=== PATIENT | female | born 1995 | race Caucasian/White ===

== ENCOUNTER 2020-05-08 09:36 | Outpatient (CLI) | payer OTHER, SELFPAY ==
--- NOTE | ~2020-05-08 | US_ITS ---
EXAMINATION: US abdomen complete EXAM DATE: 05/08/2020 10:45 INDICATION: nausea, abdominal mass, pelvic pain. TECHNIQUE: Multiple grayscale and Doppler images of the complete abdomen were obtained (by a technolo gist who performed the scan) and subsequently reviewed. There is no prior study for comparison. FINDINGS: Scanning in the reported infraumbilical area of concern demonstrates abdominal wall defect with echogenic material inside, probably small amount of herniated omental fat. The abdominal aorta is normal in caliber. Visualized portion IVC is patent. The pancreatic head a nd body are normal in appearance. The pancreatic tail is not visualized. The liver has normal echogenicity and contour. There are no focal liver lesions identified. There is no evidence of intrahepatic biliary duct dilation. Portal venous flow was seen in the hepatopedal , normal direction and has normal Doppler waveform. Common bile duct measures 2 mm, which is normal. The gallbladder wall is normal in thickness, with ex pected amount of distention. No sonographic evidence of pericholecystic fluid. There is no cholelit hiases. Technologist performing exam reports patient did not demonstrate sonographic Pierce's sign. Please note that this sign is less reliable in patients who have received pain medication. Right kidney: There is normal contour and echogenicity. It measures 9.3 x 4.6 x 3.9 centimeters. T here are no focal renal lesions identified. There is no hydronephrosis. Left kidney: Obscured by bowel gas Spleen: Also obscured by bowel gas. IMPRESSION: 1. Small infraumbilical hernia probably containing omental fat. 2. Left kidney and spleen not visualized. Reviewed, dictated and finalized at location B. 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
--- NOTE | ~2020-05-08 | US_ITS ---
EXAMINATION: US pelvic complete w TV EXAM DATE: 05/08/2020 10:48 INDICATION: Nausea, pelvic pain. History of cyst. Abdominal mass. TECHNIQUE: Pelvic transabdominal and transvaginal sonogram was performed. There are multiple graysca le and Doppler images available for interpretation. There is no prior study for comparison. FINDINGS: Uterus measures 7.7 x 4.2 x 2.6 cm, and is morphologically normal. Endometrial stripe letha sures 3 mm, within normal limits. There is no free pelvic fluid. Right adnexa: The ovary measures 3.1 x 2.2 x 2.0 cm and is morphologically normal. Ovarian vascular f low confirmed. Left adnexa: The ovary measures 2.7 x 2.6 x 2.7 cm and is morphologically normal. Ovarian vascular fl ow confirmed. IMPRESSION: 1. Unremarkable pelvic ultrasound exam. Reviewed, dictated and finalized at location B. AL THERAPIST
== END 2020-05-08 09:37 | disposition home or self-care (01) ==
PROVIDERS: Visit Provider Advanced Practice Midwife
DX: R10.2 Pelvic and perineal pain (principal); K42.9 Umbilical hernia without obstruction or gangrene
CPT/HCPCS: 76700; 76830; 76856

== ENCOUNTER 2022-08-04 02:57 | Inpatient (IN) | payer OTHER, SELFPAY ==
[2022-08-04] VITALS (123 sets, daily range): BP systolic 73–155; BP diastolic 34–90; PULSE 57–194; RESP 16–18; TEMP 36–36.9; O2SAT 95–100; BMI 27.6
--- NOTE | 2022-08-04 02:57 | LDADM ---
This patient, Anita Schulz, was admitted to Labor/Delivery/Recovery 104 on 08/04/22 at 02:57. Plans for labor, pain management and were discussed with patient. Patient/family oriented to hospital policies and general routines including ID bracelet, bed and alarms, visiting hours, pain management, procedures, bathroom and other care routines, personal items, smoking policy, room service/diet and guest tray routines, security routines, and visiting hours. Patient/Family are encouraged to report perceived risks to care and to ask questions if they do not understand what they are told or what they should do. See OBIX for further documentation.
[2022-08-04] MEDS: LACTATED RINGERS 1,000 ML 125 ML IV CONT ×2 (03:30→04:48)
[2022-08-04 03:33] LABS: Basophils Absolute Auto 0.1 K/mm3 (0.0-0.1); Basophils Percent Auto 0.5 % (0.2-1.2); Eosinophils Absolute Auto 0.1 K/mm3 (0-0.3); Eosinophils Percent Auto 0.5 % (0-4.4); Hematocrit 34.3 % (37.0-47.0); Hemoglobin 11.8 g/dL (12.0-15.0); Immature Granulocyte Percent A 0.7 % (0-0.5); Lymphocytes Absolute Auto 2.58 K/mm3 (0.9-3.2); Lymphocytes Percent Auto 16.9 % (18.3-44.2); Mean Corpuscular HGB Conc 34.4 g/dl (32-36); Mean Corpuscular Volume 87.3 fl (80-100); Mean Platelet Volume 11.3 fl (7.4-10.4); Monocytes Absolute Auto 0.9 K/mm3 (0.1-0.6); Monocytes Percent Auto 5.8 % (2.6-8.5); Neutrophils Absolute Auto 11.6 K/mm3 (1.3-6.7); Neutrophils Percent Auto 75.6 % (45.5-73.1); Platelet Count Result 212 k/mm3 (150-375); Red Blood Count 3.93 M/mm3 (4.2-5.4); Red Cell Distribution Width 13.2 % (11.5-14.5); White Blood Count 15.3 K/mm3 (4.5-10.0)
--- NOTE | 2022-08-04 04:22 | WPDANESEPPF ---
Anes - Initial Pre Proc Eval Procedure: Labor Epidural Date/Time: 08/04/22 04:00 Surgeon: Shayan Castrejon MD Pre Op Diagnosis: Labor Pain Pre Op Diagnosis: labor Patient Data Age: 27 Gender: F Height: 1.63 m Weight: 73 kg Last Vital Signs Pulse 68 08/04/22 04:21 BP 115/61 08/04/22 04:21 Pulse Ox 95 08/04/22 04:22 Allergies Allergy/AdvReac Type Severity Reaction Status Date / Time hydrocodone Allergy Nausea and Verified 08/04/22 03:15 Vomiting oxycodone Allergy Nausea and Verified 08/04/22 03:15 Vomiting Home Medications Medication Instructions Recorded Confirmed Type prenat.vits,blanca,dvk-jyyg-ppsoo 1 tablet PO HS 07/26/22 08/04/22 History sertraline 50 mg tablet 50 mg PO DAILY 07/26/22 08/04/22 History Laboratory Tests 08/04/22 03:28 WBC 15.3 H K/mm3 (4.5-10.0) RBC 3.93 L M/mm3 (4.2-5.4) Hgb 11.8 L g/dL (12.0-15.0) Hct 34.3 L % (37.0-47.0) MCV 87.3 fl (80-100) MCH 30.0 pg (26-34) MCHC 34.4 g/dl (32-36) RDW 13.2 % (11.5-14.5) Plt Count 212 k/mm3 (150-375) MPV 11.3 H fl (7.4-10.4) Immature Gran % (Auto) 0.7 H % (0-0.5) Neut % (Auto) 75.6 H % (45.5-73.1) Lymph % (Auto) 16.9 L % (18.3-44.2) [place] % (Auto) 5.8 % (2.6-8.5) Eos % (Auto) 0.5 % (0-4.4) Baso % (Auto) 0.5 % (0.2-1.2) Lymph # (Auto) 2.58 K/mm3 (0.9-3.2) [place] # (Auto) 0.9 H K/mm3 (0.1-0.6) Eos # (Auto) 0.1 K/mm3 (0-0.3) Baso # (Auto) 0.1 K/mm3 (0.0-0.1) Abs Immat Gran (auto) 0.10 H K/mm3 (0.00-0.031) Absolute Neuts (auto) 11.6 H K/mm3 (1.3-6.7) Absolute Nucleated RBC 0.0 K/mm3 (0.0-0.012) Nucleated RBC % 0.0 % (0.0-0.2) RPR Pending Patient hx anesthesia problems: none Family hx anesthesia problems: none Results Review: All pre-operative results and documents have been reviewed as part of the pre-operative evaluation. [facility] Family History Family History (Updated 07/26/22 @ 12:34 by Vesna Bundy RN) Other Patient denies significant medical history Social History Social History Smoking status: Never smoker Alcohol intake: current Substance use: never Spiritual care concerns: No Anes - Eval Final PreProcedure Day of Procedure 08/04/22 04:22 Patient weight: normal Heart: regular rate and rhythm Airway: Mallampati scale class II Neurological: alert and oriented ASA classification: II Emergent: no Anesthetic plan: proceed Anesthesia type and monitoring: regional epidural and standard monitoring Results Review: All pre-operative results and documents have been reviewed as part of the pre-operative evaluation. Informed Consent: The patient's anesthetic plan and its attendant risks and benefits were discussed with the patient/family/POA. Questions were solicited and answers provided to the satisfaction of the patient/family/POA.
--- NOTE | 2022-08-04 04:26 | WPDANESEPN ---
Anes - Epidural Procedure Note Date/Time: 08/04/22 04:26 Consent: I have discussed with the patient/family/POA, the placement of an epidural catheter and the use of epidural narcotic/local anesthetic for labor analgesia and/or postoperative pain management, including associated potential risks, benefits, complications and side effects. I have discussed alternative methods of labor analgesia and/or postoperative pain management. The patient/family/POA, understand(s) and wish(es) to proceed with epidural narcotic/local anesthetic for labor analgesia and/or postoperative pain management. Time-Out: A pre-procedural Time-Out was completed immediately before starting the procedure and confirmed: Patient Identification, Site, Procedure, Patient Position and the Availability of Requisite Equipment. Clinical Indications: Labor Pain Epidural Insertion Note Patient position: sitting Skin prep: chlorhexidine and sterile drape Needle: 18g Tuohy-Schliff Catheter: 20g Unstyleted Technique: Loss of resistance. Level of insertion: L3/4 Catheter skin yayo (cm): 5 Length in epidural space (cm): 10 Skin anesthesia: lidocaine 1% Test dose: 1.5% Lidocaine with 1:[id number] Epi, negative for subarachnoid Inj and negative for intravascular Inj Time of test dose: 04:11 Observations: tolerated well Complications: none
[2022-08-04] MEDS: ONDANSETRON INJ 4 MG/2 ML VIAL IV PUSH (08:10)
[2022-08-04] MEDS: OXYTOCIN 30 UNITS/NS 500 ML 30 UNITS/500 ML BAG 999 UNITS IV CONT (10:26)
--- NOTE | 2022-08-04 10:39 | PM.OBPRVD ---
OB - Delivery Note Procedure Delivery date: 08/04/22 Procedure: Delivery augmentation: Rupture of Membranes Delivery monitor: External FHT and External Uterine Route of delivery: Episiotomy description: None Laceration Description: Other (small left periurethral, 2 stitches vaginally removed piece of hymenal tag) Delivery repair: vicryl Specimen: No Quantitative Blood Loss (ml): 310 Anesthesia type: Epidural Disposition: Floor Baby Date of : 08/04/22 Time of : 10:20 Weeks of gestation at delivery: 39 gender: Male presentation: vertex position: Left Occiput Anterior Placenta delivery description: Spontaneous Cord Vessel Description: 3 Vessels, Clamped/Cut and Delayed Cord Clamping score one minute: 8 score five minutes: 9 Narrative: mother and baby skin to skin in stable condition
[2022-08-04] MEDS: OXYTOCIN 30 UNITS/NS 500 ML 30 UNITS/500 ML BAG 125 UNITS IV CONT (11:00)
[2022-08-04] MEDS: ACETAMINOPHEN 325 MG TABLET 650 MG PO (11:26)
[2022-08-04] MEDS: WITCH HAZEL 40 PADS 1 PAD TOPICAL (12:40)
[2022-08-04] MEDS: BENZOCAINE 20% AER SPR (*SP) 56 GM CAN 1 SPRAY TOPICAL (12:40)
--- NOTE | 2022-08-04 12:49 | OBPPTRN ---
Patient transferred to post room # 291 via wheelchair. Support person present. Oriented to unit, room, information board, rooming in, admission packet and security measures. Patient verbalizes understanding.
[2022-08-04] MEDS: IBUPROFEN 600 MG TABLET PO (17:02)
[2022-08-04] MEDS: SERTRALINE HCL 50 MG TABLET PO (21:04)
[2022-08-05 05:35] LABS: Hematocrit 29.3 % (37.0-47.0); Hemoglobin 9.5 g/dL (12.0-15.0)
[2022-08-05 07:29] LABS: Rapid Plasma Reagin Non-Reactive (NonReactive)
--- NOTE | 2022-08-05 07:49 | PM.OBPNVD ---
OB - PN: Subj Subjective Date/time seen: 08/05/22 07:49 Patient comments: no complaints baby status: doing well OB - PN: Obj Data Labs 08/05/22 05:12 Labs: Laboratory Results - last 24 hr 08/04/22 08/05/22 03:28 05:12 Hgb 9.5 L Hct 29.3 L RPR Non-reactive OB - PN A/P Plan day: 1 Plan: routine care Time Spent With Patient Time: Total time spent is greater than 50% in coordination of care (as documented) at patient's floor/unit and/or counseling patient: Time with patient: less than 15 minutes Review of Systems Review of Systems: All systems reviewed & are unremarkable except as noted in HPI and below Exam Narrative: Fundus firm and vaginal flow controlled. No lower ext redness, warmth, or edema. Negative homans. Const: General: comfortable Chest: Breast/axilla inspection: normal inspection of the breasts Resp: Effort & Inspection: normal respiratory effort Cardio: Rate: regular rate GI: GI Palp: Yes Soft to palpation Psych: Appearance: grossly normal Affect: normal affect Attitude: cooperative Thought content: Yes Normal thought content present Judgement: Good judgement present (Psych)
[2022-08-05 07:50] VITALS: BP 120/65; PULSE 87; RESP 16; TEMP 36.6; O2SAT 98
[2022-08-05 08:00] VITALS: PULSE 87; RESP 16; O2SAT 98
[2022-08-05] MEDS: POLYSACCHARIDE IRON COMPLEX 150 MG CAPSULE PO ×2 (10:27→18:01)
[2022-08-05] MEDS: MULTIVIT/MIN/PREN/FOL AC/IRON TABLET 1 TAB PO (10:28)
[2022-08-05] MEDS: IBUPROFEN 600 MG TABLET PO ×2 (10:28→18:01)
--- NOTE | 2022-08-05 10:32 | PC.NURSE ---
[id number] Introductions were made, then consulted with patient to assess needs related to . Mother led the conversation with her?plans to feed?her infant and the?experience so far. Blood sugar was checked and resulted at 76mg/dl. Resources provided for inpatient and outpatient services with the feeding sheet, mom/baby guide and name written on the white board. Mother voiced understanding of information and is receptive to assistance with latching . Mother states she has used a nipple shield twice with only one latch. Mother works well with her infant. Reviewed intake, output, blood sugar, and frequency of /stimulating milk making hormones with baby or the pump as she chooses. Discussed risks and benefits of bottle feeding and . was given time to explore mothers chest practicing instincts of crawling to the breast. Mother practiced hand expression finger fed colostrum to her infant. was assisted to attempt to latch to the breast using laid-back, cross-cradle, and football. is sleepy and reluctant at this time. Discusses paced bottle feeding if mother chooses to pump and feed for this next feeding as she has asked about that option. Mother was encouraged to give her infant some time ctsg-sa-zhow and continue to work with her infant and to call if infant doesn't wake to feed, there's pain with latch, for latch assistance, questions or concerns. Reviewed to breastfeed on demand and encouraged parents to advocate for feeding above assessment/testing if it can wait. Mother demonstrates understanding of education and father of baby acknowledges information with support. Reported to the primary RN.
[2022-08-05] MEDS: DOCUSATE SODIUM 100 MG CAPSULE PO (18:01)
[2022-08-05 20:05] VITALS: BP 121/72; PULSE 99; RESP 18; TEMP 36.8; O2SAT 99
[2022-08-05] MEDS: SERTRALINE HCL 50 MG TABLET PO (20:10)
[2022-08-06 08:32] VITALS: BP 115/74; PULSE 69; RESP 16; O2SAT 99
[2022-08-06] MEDS: POLYSACCHARIDE IRON COMPLEX 150 MG CAPSULE PO (08:32)
[2022-08-06] MEDS: MULTIVIT/MIN/PREN/FOL AC/IRON TABLET 1 TAB PO (08:32)
[2022-08-06] MEDS: DOCUSATE SODIUM 100 MG CAPSULE PO (08:32)
--- NOTE | 2022-08-06 09:59 | PM.OBPNVD ---
OB - PN: Subj Subjective Date/time seen: 08/06/22 09:59 Patient comments: no complaints, pain well controlled and tolerating diet OB - PN: Obj Data Labs 08/05/22 05:12 OB - PN A/P Plan day: 2 Plan: routine care and discharge home Time Spent With Patient Time: Total time spent is greater than 50% in coordination of care (as documented) at patient's floor/unit and/or counseling patient: Exam Const: General: comfortable and no acute distress Resp: Effort & Inspection: normal respiratory effort Auscultation: no rales, no rhonchi and no wheezes Cardio: Rate: regular rate Heart sounds: no click, no murmurs and no rubs GI: GI Palp: Yes Soft to palpation and No Tenderness to palpation present (GI) Auscultation: normal bowel sounds Extrem: General: normal to inspection, no pedal edema and no calf tenderness
--- NOTE | 2022-08-06 09:59 | PM.OBDSVD ---
DS: Admitting Diagnosis Discharge Date 08/06/22 Admitting Diagnosis term OB - DS: Summary OB Procedures : None OB Procedures Intrapartum: Spontaneous Vag Delivery OB Procedures: : None Time Spent with Patient Time attestation: Total time spent providing and/or coordinating discharge services: DS: Data Data Completed and Pending Pending studies at discharge: Pending at discharge 08/05/22 07:37 Surgical [PTH] Routine Discharge Plan Discharge Discharging Clinician: Shayan Castrejon Patient Disposition: Home, Self-Care Activity: pelvic rest Diet: regular Patient Instructions: Antibiotic Form Stand Alone Forms: General Discharge Information Follow-up/Referrals: Shayan Castrejon MD [Physician] - Discharge Medications: Continued sertraline 50 mg Tablet 50 mg PO DAILY #2 Tablet 1 tablet PO HS Date of admission: 08/04/22 02:57 Primary Care Provider: PHYSICIAN,TEXTILE CLOTHING AND FOOTWEAR MECHANIC Admitting Provider: Shayan Castrejon Attending physician on admission: Shayan Castrejon Condition: Stable
--- NOTE | 2022-08-06 17:54 | PC.NURSE ---
[id number] Patient viewed the discharge video Mother & Baby Care, The First Two Weeks . Patient was given the opportunity and encouraged to ask questions. Patient verbalized understanding of information shared and has been given the mother/baby guide for home reference.
[2022-08-07 09:57] VITALS: BP 125/54; PULSE 89; RESP 16; TEMP 36.9; O2SAT 97
--- NOTE | 2022-08-26 13:25 | PM.OBTRLD ---
OB - Triage/Final Diagnosis Visit Information Comments/Additional reasons for admission: I have assessed the risk for this patient, Anita Schulz, and determined that she would benefit from observation care. Evaluation Laboratory results: Laboratory Tests 08/04/22 08/05/22 03:28 05:12 WBC 15.3 H RBC 3.93 L Hgb 11.8 L 9.5 L Hct 34.3 L 29.3 L MCV 87.3 MCH 30.0 MCHC 34.4 RDW 13.2 Plt Count 212 MPV 11.3 H Immature Gran % (Auto) 0.7 H Neut % (Auto) 75.6 H Lymph % (Auto) 16.9 L [place] % (Auto) 5.8 Eos % (Auto) 0.5 Baso % (Auto) 0.5 Lymph # (Auto) 2.58 [place] # (Auto) 0.9 H Eos # (Auto) 0.1 Baso # (Auto) 0.1 Abs Immat Gran (auto) 0.10 H Absolute Neuts (auto) 11.6 H Absolute Nucleated RBC 0.0 Nucleated RBC % 0.0 RPR Non-reactive Blood Type O Positive Antibody Screen Negative Final Diagnosis (1) Term delivered: Code(s): O80 - Encounter for full-term uncomplicated delivery Status: Acute
--- OUTSIDE RECORDS SUMMARY | 2023-01-07 11:33 | XMS_ITS ---
Author Name Unknown Address [address] [place] [address] Phone Organization [facility] Address [address] [place] [address] Phone Care Team Providers Care Attraction Worker Name Role Phone BRANDEN DONG, BRENTON Hendricks Primary Care Provider [phone] Problems Includes: Active, inactive, and resolved Problems All Visits Onset Date Resolved Date Provider Condition S tatus 06/15/2022 CORBY GUTHRIE [facility]- A ctive Plan of Treatment Findings Encounter Date Ordered follow-up visit as n eeded with an office visit if symptoms persist or worsen COVID SICK VISIT- ESTABLISHED PATIENT with CORBY GAMBOA-GABRIEL 06/15/2022
--- OUTSIDE RECORDS SUMMARY | 2023-01-07 11:33 | XMS_ITS | Clinical Summary ---
Author Name Unknown Address [address] [place] [address] Phone Organization [facility] Address [address] [place] [address] Phone Care Team Providers Care Staking Technician Name Role Phone BRANDEN DONG, BRENTON Hendricks Primary Care Provider [phone] Reason for Visit and Chief Complaint The Chief Complaint is: pt is here with a cough, sequeira,sore throat,stuffy and runny nose. pt is 22 weeks Problems Includes: Problems addressed during this encounter and other active Problems All Visits Onset Date Resolved Date Provider Condition S tatus 06/15/2022 CORBY GUTHRIE [employer]- A ctive Plan of Treatment - Return to the clinic if condition worsens or new symptoms arise - Last Documented On 04/11/2022 2:14PM ; [facility] - Patient will call for appointment as needed - Last Documented On 04/11/2022 2:14PM ; [facility] Instructions to patient Instructions for patient Last Documented On 2:11PM ; [facility] Assessments Includes: Assessments from this encounter Findings - Acute upper respiratory infection - Last Documented On 04/11/2022 2:14PM ; [facility] Instructions Includes: Instructions from this encounter Ins
--- OUTSIDE RECORDS SUMMARY | 2023-01-07 11:33 | XMS_ITS | Clinical Summary ---
Author Name Unknown Address [address] [place] [address] Phone Organization [facility] Address [address] [place] [address] Phone Care Team Providers Care Insurance Verify Rep Name Role Phone BRANDEN DONG, BRENTON Hendricks Primary Care Provider [phone] Reason for Visit and Chief Complaint The Chief Complaint is: Pt here with cough sore throat and nausea and some vomiting but not sure ifthat is from being 17 weeks preg.this all started Friday Problems Includes: Problems addressed during this encounter and other active Problems All Visits Onset Date Resolved Date Provider Condition S tatus 06/15/2022 CORBY GUTHRIE [employer] [facility] [employer]RU [employer] 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 Antibiotics not indicated today. May take OTC medications to help with symptoms - decongestants, antihistamines, flonase, expectorants. Return with any new or worsening symptoms. - Last Documented On 03/06/2022 11:18PM ; [facility] Assessments Includes: Assessments from this encounter Findings - [J00 - Acute nasopharyngitis [common cold]] Acute nasopharyngitis - Last Documented On 03/06/2022 11:18PM ; [facility] Medical Equipment - Implanted Devices Includes: Current Devices No Medical Equipment Recorded Medications Includes: Medications discussed during this encounter and other current Medications Current Medications (continue as prescr
--- OUTSIDE RECORDS SUMMARY | 2023-01-07 11:33 | XMS_ITS | Clinical Summary ---
Author Name Unknown Address [address] [place] [address] Phone Organization [facility] Address [address] [place] [address] Phone Care Team Providers Care Alumni Relations Coordinator Name Role Phone BRANDEN DONG, BRENTON Hendricks Primary Care Provider [phone] Reason for Visit and Chief Complaint The Chief Complaint is: PT C/O SORE THROAT AND CONGESTION. PT Problems Includes: Problems addressed during this encounter and other active Problems Current Visit Onset Date Resolved Date Provider Douglas wayne Status 06/15/2022 CORBY GUTHRIE [facility]- A ctive Plan of Treatment - Return to the clinic if condition worsens or new symptoms arise - Last Documented On 06/15/2022 1:55PM ; [facility] - Follow-up visit as needed with an office visit if symptoms persist or worsen - Last Documented On 06/15/2022 1:55PM ; [facility] - Patient to call if problem develops - Last Documented On 06/15/2022 1:55PM ; [facility] Instructions to patient Go to the emergency room if condition worsens Last Documented On 1:51PM ; [facility] Watch for signs/symptoms of infection Last Documented On 1:51PM ; [facility] Watch for signs/symptoms of infection, return to the clinic if seen
--- OUTSIDE RECORDS SUMMARY | 2023-01-07 11:33 | XMS_ITS | Clinical Summary ---
Author Name Unknown Address [address] [place] [address] Phone Organization [facility] Address [address] [place] [address] Phone Care Team Providers Care Stud Driver Name Role Phone BRANDEN DONG, BRENTON Hendricks Primary Care Provider [phone] Reason for Visit and Chief Complaint The Chief Complaint is: Patient denies COVID exposure, and is fully vaccinated. Patient complains of fatiuge, cough, chills, headache, loss of taste and smell, sore throat and runny nose since Friday Problems Includes: Problems addressed during this encounter and other active Problems All Visits Onset Date Resolved Date Provider Condition S tatus 06/15/2022 CORBY GUTHRIE [facility]- A ctive Plan of Treatment Patient tested positive via rapid COVID testing. Patient was instructed to quarantine for 10 days from onset of symptoms. Health Department was notified of positive results. Discussed OTC medications for symptoms. Stay well hydrated and get plenty of rest. Discussed s/s of respiratory distress and when to go to ER. Follow up if symptoms worsen or do not improve. - Last Documented On 03/23/2021 4:55PM ; [facility] Assessments Includes: Assessments from this encounter Findings - COVID-19 infection [U07.1 - COVID-19] - Last Documented On 03/23/2021 4:55PM ; [facility] Medical Equipment - Implanted Devices Includes: Current Devices No Medical Equipment Recorded Medications
--- OUTSIDE RECORDS SUMMARY | 2023-01-07 11:34 | XMS_ITS | Clinical Summary ---
Author Name Unknown Address [address] [place] [address] Phone Organization [facility] Address [address] [place] [address] Phone Care Team Providers Care City Alderman Name Role Phone BRANDEN DONG, BRENTON Hendricks Primary Care Provider [phone] Reason for Visit and Chief Complaint The Chief Complaint is: No COVID exposure, sx of chest pain/tightness, cough. fatigue/tired, muscle/body aches, stuffy nose, nausea, LYLE, STand loss of taste/smell yesterday morning (Had COVID vaccines September & October) Problems Includes: Problems addressed during this encounter and other active Problems All Visits Onset Date Resolved Date Provider Condition S tatus 06/15/2022 CORBY GUTHRIE [facility]- A ctive Plan of Treatment - Return to the clinic if condition worsens or new symptoms arise - Last Documented On 12/22/2020 6:27PM ; [facility] - Patient will call for appointment as needed - Last Documented On 12/22/2020 6:27PM ; [facility] Instructions to patient Instructions for patient Last Documented On 6:06PM ; [facility] Assessments Includes: Assessments from this encounter Findings - Acute upper respiratory infection - Last Documented On 12/22/2020 6:27PM ; [facility] Instructions Include
== END 2022-08-06 15:37 | disposition home or self-care (01) | DRG 560 ==
LOC: ANHLDR 03:11 → ANHOB2 12:52
PROVIDERS: Advanced Practice Midwife; Admitting Provider Obstetrics & Gynecology; Visit Provider Obstetrics & Gynecology
DX: O99.892 Other specified diseases and conditions complicating childbirth (principal); N89.8 Other specified noninflammatory disorders of vagina; Z37.0 Single live birth; Z3A.39 39 weeks gestation of pregnancy; O71.82 Other specified trauma to perineum and vulva
CPT/HCPCS: 36415; 85014; 85018; 85025; 86592; 86850; 86900; 86901; 88307; A9270; J2405; J2590; J2795; J7120

== ENCOUNTER 2023-12-31 13:05 | Observation (INO) | payer OTHER, SELFPAY ==
--- NOTE | 2023-12-31 13:05 | OBADM ---
This patient, Anita Schulz, admitted to the OB room OB Post 115 for observation. Patient/family oriented to hospital policies and general routines including ID bracelet, bed and alarms, visiting hours, pain management, procedures, bathroom and other care routines, personal items, smoking policy, room service/diet, and visiting hours. Patient/Family are encouraged to report perceived risks to care and to ask questions if they do not understand what they are told or what they should do.
[2023-12-31 13:45] VITALS: BP 106/67; PULSE 89
[2023-12-31 14:00] VITALS: BP 121/74; PULSE 90
--- NOTE | 2024-01-01 14:07 | PM.OBTRLD ---
OB - Triage/Final Diagnosis Visit Information Date of evaluation: 12/31/23 Reason for evaluation: other (fall) Comments/Additional reasons for admission: I have assessed the risk for this patient, Anita José Miguel Chandlerey, and determined that she would benefit from observation care.
== END 2023-12-31 15:21 | disposition home or self-care (01) ==
PROVIDERS: Admitting Provider Obstetrics & Gynecology; Visit Provider Obstetrics & Gynecology
DX: Z04.3 Encounter for examination and observation following other accident (principal); O26.893 Other specified pregnancy related conditions, third trimester; W19.XXXA Unspecified fall, initial encounter; Z3A.37 37 weeks gestation of pregnancy
CPT/HCPCS: G0378; G0379

== ENCOUNTER 2024-01-15 23:16 | Inpatient (IN) | payer OTHER, SELFPAY ==
[2024-01-16] VITALS (193 sets, daily range): BP systolic 81–216; BP diastolic 48–189; PULSE 33–135; RESP 18; TEMP 36.3–36.8; O2SAT 89–100; BMI 27.5
--- OUTSIDE RECORDS SUMMARY | 2024-01-16 00:23 | XMS_ITS | Clinical Summary ---
Author Name Unknown Address [address] [place] [address] Phone Organization [facility] Address [address] [place] [address] Phone Care Team Providers Care Ledger Poster Name Role Phone BRENTON OTERO MD Primary Care Provider [phone] Reason for Visit and Chief Complaint The Chief Complaint is: Left ingrown toe nail removal Problems Includes: Problems addressed during this encounter and other active Problems All Visits Onset Date Resolved Date Provider Condition S tatus 06/15/2022 CORBY GUTHRIE [employer]-BC A ctive Plan of Treatment No Plan of Treatment Recorded Assessments Includes: Assessments from this encounter Findings - Ingrowing toenail of left foot [L60.0 - Ingrowing nail] - Last Documented On 01/01/2023 3:00PM ; [facility] - Paronychia of the left first toe [L03.032 - Cellulitis of left toe], resolved - Last Documented On 01/01/2023 3:00PM ; [facility] Medical Equipment - Implanted Devices Includes: Current Devices No Medical Equipment Recorded Medications Includes: Medications discussed during this encounter and other current Medications Discontinued / Stopped on this date JALYN CARRANZA PA-C on 12/05/2022 Cephalexin 500 MG Oral Capsule Provider: JALYN Ferguson Diagnosis: Cellulitis of le ft toe Mupirocin 2% External Ointment Provider: JALYN D ZIPPRICH P A-C Diagnosis: Cellulitis of le ft toe Flagyl 500MG Oral Tablet Provider: EVANGELIST COURTNEY PA-C Diagnosis: Acute vaginitis Effexor XR 37.5 MG Capsule Extended Release 24 Hour Provider: KARLIE Bliss Diagnosis: Major depressive disorder, single episode, unspecified PROzac 20 MG Capsule Provider: KARLIE COURTNEY PA-C Diagnosis: Anxiety disorder , unspecified PROzac 10 MG Capsule, conventional Provider: KARLIE Bliss Diagnosis: Anxiety disorder , unspecified Diflucan 150 MG Tablet Provider: SHAWN COURTNYE PA-C Diagnosis: Candidiasis of v ulva and vagina Cyclobenzaprine HCl 10 MG Tablet Provider : ADAN ORDONEZ PA-C Diagnosis: SPASM OF MUSCLE Fluconazole 150 MG Tablet Provider: ME BRAYDEN ORDONEZ PA-C Diagnosis: CANDIDAL VULVOVA GINITIS Hydrocodone-Acetaminophen 5- 325 MG Tablet Provider: GILBERT LOVE DO Diagnosis: LUMP OR MASS IN BREAST Fluconazole 150 MG OR TABS Provider: ADAN ORDONEZ PA-C Diagnosis: CANDIDAL VULVOVA GINITIS Cipro 250 MG OR TABS Provider: ADAN ORDONEZ PA-C Diagnosis: URIN TRACT INFEC TION NOS Bactrim DS 800-160 MG OR TABS Provider: CAN CURRY PA-C Diagnosis: INGROWING NAIL Aldara 5% EX CREA Provider: CAN KENNEY PA-C Diagnosis: VIRAL WARTS NOS Naprosyn 500 MG OR TABS Provider: BEATRICE CARRANZA PA-C Diagnosis: BACKACHE NOS Ventolin HFA 108 (90 Base) M CG/ACT IN AERS Provider: CAN CURRY PA-C Diagnosis: SHORTNESS OF BRENNAN ATH Current Medications (continue as prescribed) Sertraline HCl 100 MG Oral Tablet 12/05/2022 Provide r: Diagnosis: ordered by ob-cnc set up operator Past Medications on file Amoxicillin 875 MG Oral Tablet 08/20/2023 - 08/30/2023 Provider: UZMA SNOWDEN DNP Diagnosis: Streptococcal pharyngitis 1 CAPSULE TWO TIMES A DAY Cephalexin 500 MG Oral Capsule 01/28/2023 - 02/04/2023 Provider: JALYN ALCALA CH, PA-C Diagnosis: Ingrowing nail One tablet three times a day Medications Administered Includes: Administered Medications from this encounter No Administered Medications Recorded Vital Signs Includes: Vital Signs from this encounter Vital Name 01/01/2023 02:15P Blood Pressure Sitting L 112/64 BP Cuff Size Regular Pulse Rate-Sitting (bpm) 88 Respiration Rate (breaths/min) 18 Temp-Oral (F) 97.6 Height (in) 63 Weight (lb) 130 Body Mass Index 23 Body Surface Area 1.6 Oxygen Saturation (%) 98 Last Documented: On 01/01/2023 2:26PM ; [facility] Results Includes: Results discussed during this encounter No Results Recorded For Specified Dates History of Present Illness Includes: History of Present Illness from this encounter JENNIFER SNYDER is a 27 year old female. Source of patient information was patient ? Allergy list reviewed ? Medication list reviewed - No pain in the left great toe joint(s) - No left great toe joint swelling - No stiffness in the left great toe joint - No yellowish discoloration of the left great toenail Social History Description Last Updated Current smoker 08/20/2023 Procedures and Surgical History Includes: Procedures from this encounter Procedures Code Diagnosis Performing Provider Service L ocation Service Date partial permanent excision of medial border of left great toenail and matrix - after explaining procedure and risk, verbal consetn obtained. Toe was cleaned with betadine. 1cc of 2% lidocain injected locally . 4mm of medial nail removed. Nail base was treated with phenol and alcohol to prevent nail growth. Patient tolerated procedure well with no complaintss. Minimal blood loss controlled with pressure. Toe was banaged and post op procedure given including observation, keeping toe clean and appying triple antibiotic BID x 7 days [id number] Medical History Includes: Medical History addressed during this encounter Description Last Updated Contact with and (Suspected) exposure to COVID-19 08/20/2023 Family History Includes: Family History addressed during this encounter Description Last Updated Family history of malignant female breas t neoplasm MGM--early 30s 07/25/2016 Review of Systems Includes: Review of Systems from this encounter No Review of Systems Recorded Mental Status Includes: Mental Status from this encounter No Mental Status Recorded Functional Status Includes: Functional Status from this encounter No Functional Status Recorded Physical Exam Includes: Physical Exam from this encounter Allergies Includes: Active Allergies Substance Type Reaction Onset Date Resolved Date Statu s oxyCODONE HCl Allergy 08/20/2023 Activ e Encounters Encounter Provider Location Date Check-In Time Check-Out Time Diagnosis PROBLEM VISIT JALYN CARRANZA PA-C [facility] 01/02/20 23 2:12PM 2:49PM Paronychia Left First Toe,Ingrowing Toenail Left Foot Insurance Includes: Active Insurance Policies Plan Name Member ID Group # Subscriber Relationship Effect breonna Dates 1 - [facility] [id number] GRACIELA SNYDER Self Clinical Notes Includes: Clinical Notes from this encounter * Progress note Date Encounter Last Documented by 01/01/2023 PROBLEM VISIT Last documented on 01/01/2023; 3:00 PM, JALYN CARRANZA PA-C; [facility] Active Problems & Conditions - No Active Problems - Z33.1 - Chief Complaint The Chief Complaint is: Left ingrown toe nail removal. History of Present Illness GRACIELA SNYDER is a 27 year old female. Source of patient information was patient - Allergy list reviewed - Medication list reviewed - No pain in the left great toe joint(s) - No left great toe joint swelling - No stiffness in the left great toe joint - No yellowish discoloration of the left great toenail Current Medication - Sertraline HCl 100 MG Oral Tablet One tablet daily ordered by ob-cnc set up operator, 0 days, 0 refills Past Medical/Surgical History Reported: Not carrier of hemophilia A. No other medical history reported Signs of Insulin Resistance and no Surgery. LMP: 10/15/2009. Recent Events: No recent severe illness or injury. Medical: No previous hospitalizations. Recurrent group A beta-hemolytic streptococcus infections. No hearing problems, no cardiac problems, and no heart murmur. No orthopedic problems. No loss of function of one of paired organs. Tests: Blood pressure was not high. Exposure: Contact with and (Suspected) exposure to COVID-19. No exposure to tuberculosis. Environmental Exposure: Smoke exposure. Physical Trauma: No fall. No trauma to the head. : Vaginal delivery and 0. Pediatric: Not born with congenital abnormalities. Physical Exam: No delayed milestones Diagnoses: No diagnosis of asthma had negative spirometry in 2007 but still seems like she gets more out of breath than other peers when runs. No diagnosis of diabetes mellitus. No diagnosis of concussion. No diagnosis of hematologic disorder No diagnosis of sickle cell abnormality Social History Social history unchanged. Caffeine use: Caffeine use - All day everyday. Tobacco use: Current smoker and former smoker VAPES. Smoking status: Former smoker. Alcohol: Not using alcohol. Drug Use: Not using drugs. Housing And Economic Circumstances: Lives with unmarried mother. Education: Currently in school. Sexual: Sexually active; current partner x 1mo . Has had 10 lifetime partners. control method not specified. Travel: No travel. Allergies - HYDROcodone-Acetaminophen Family History Cancer No family history of sudden early deaths No family history of bleeding problems Family history unchanged No convulsions Blood pressure was not high No family history of defects No diagnosis of diabetes mellitus No diagnosis of arthritis No diagnosis of stroke syndrome No diagnosis of malignant neoplasm of large intestine Malignant female breast neoplasm MGM--early 30s Physical Findings - Vitals taken 01/01/2023 02:15 pm BP-Sitting L 112/64 mmHg BP Cuff Size Regular Pulse Rate-Sitting 88 bpm Respiration Rate 18 per min Temp-Oral 97.6 F Height 63 in Weight 130 lbs Body Mass Index 23 kg/m2 Body Surface Area 1.6 m2 Oxygen Saturation 98 % Cardiovascular: Capillary Refill Test: - 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 Musculoskeletal System: Toes: General/bilateral: - No onycholysis of the left first toe. - No onychogryphosis of the left first toe. - No discoloration of the left first toenail. Toes Of The Left Foot: - Paronychia of the medial first toe. - Tenderness on palpation of the first toe, medial nail fold. - No swelling, erythema, and warmth of the first toe, medial aspect. - No drainage from the great toenail fold. Psychiatric: Psychiatric: Value PHQ9 score: 0 Nails: - Ingrown nails were noted on the medial border of the left first toe. Assessment - Ingrowing toenail of left foot [L60.0 - Ingrowing nail] - Paronychia of the left first toe [L03.032 - Cellulitis of left toe], resolved Therapy - Partial permanent excision of medial border of left great toenail and matrix - after explaining procedure and risk, verbal consetn obtained. Toe was cleaned with betadine. 1cc of 2% lidocain injected locally . 4mm of medial nail removed. Nail base was treated with phenol and alcohol to prevent nail growth. Patient tolerated procedure well with no complaintss. Minimal blood loss controlled with pressure. Toe was banaged and post op procedure given including observation, keeping toe clean and appying triple antibiotic BID x 7 days. Practice Management Use of tobacco assessment performed Review of medications documented; Standardized depression screening: negative for symptoms and for adult impression and score 0. Health Reminders - Assess BMI satisfied 01/01/2023. - Assess Tobacco Use satisfied 01/01/2023. - Depression Screening satisfied 01/01/2023. - Follow up plan for Depression Screening satisfied 01/01/2023.
--- OUTSIDE RECORDS SUMMARY | 2024-01-16 00:23 | XMS_ITS | Clinical Summary ---
Author Name Unknown Address [address] [place] [address] Phone Organization [facility] Address [address] [place] [address] Phone Care Team Providers Care Cellars Supervisor Name Role Phone BRANDEN DONG, BRENTON Hendricks Primary Care Provider [phone] Reason for Visit and Chief Complaint The Chief Complaint is: PT IS HERE DUE TO BEING EXPOSED TO COVID STEPHANIE HER SON TESTED POS FOR COVID YESTERDAY SHE HAS CONGESTION, RUNNY NOSE, FEVERISH, BODY ACHES, HEADACHE DID COVID FLU STREP PT IS18 WKS PREGANT Problems Includes: Problems addressed during this encounter and other active Problems All Visits Onset Date Resolved Date Provider Condition S tatus 06/15/2022 CORBY GUTHRIE KARATE BLACK BELT- A ctive Plan of Treatment - Return to the clinic if condition worsens or new symptoms arise - Last Documented On 08/20/2023 4:02PM ; [facility] Strep and COVID tests were both negative at today's visit. Recommend that the patient follows up with OB provider. Seek ER attention if cramping gets worse or any vaginal bleeding or discharge is noted. 1. Increase water intake. 2. Get plenty of rest. 3. Take antibiotic as directed, even if/when you start to feel better. 4. May use salt water gargles, OTC Chloraseptic spray, or throat lozenges to help with symptoms. 5. Change mouth care products, such as your tooth brush, 24-48 hours after starting antibiotic to help prevent re-infection. 6. Illness is spread via droplet contact. It is important to avoid sharing eating utensils and drinking cups to prevent the spread of infection. 7. Patient may return to school/work after being on antibiotic therapy for 24 hours. 8. Patient voiced understanding to the teaching. - Last Documented On 08/20/2023 4:02PM ; [facility] Assessments Includes: Assessments from this encounter Findings - [J02.0 - Streptococcal pharyngitis] Group A streptococcus: B hemolytic pharyngitis - Last Documented On 08/20/2023 4:02PM ; [facility] - [U07.1 - COVID-19] Acute COVID-19 infection - Last Documented On 08/20/2023 4:02PM ; [facility] Medical Equipment - Implanted Devices Includes: Current Devices No Medical Equipment Recorded Medications Includes: Medications discussed during this encounter and other current Medications New / Renewed during this visit UZMA NSOWDEN DNP on 08/20/2023 Amoxicillin 875 MG Oral Tablet Provider: UZMA De NP 10 day supply: 20 tablet, 0 refills Diagnosis: Streptococcal pharyngitis 1 CAPSULE TWO TIMES A DAY Pharmacy: [address], [phone] - Current Medications (continue as prescribed) Sertraline HCl 100 MG Oral Tablet 12/05/2022 Provide r: Diagnosis: ordered by ob-callisthenics instructor Medications Administered Includes: Administered Medications from this encounter No Administered Medications Recorded Vital Signs Includes: Vital Signs from this encounter Vital Name 08/20/2023 03:30P Blood Pressure Sitting L 112/68 BP Cuff Size Regular Pulse Rate-Sitting (bpm) 100 Pulse Rhythm Regular Respiration Rate (breaths/min) 21 Temp-Oral (F) 98.4 Height (in) 63 Weight (lb) 123 Body Mass Index 21.8 Body Surface Area 1.6 Oxygen Saturation (%) 100 Last Documented: On 08/20/2023 3:32PM ; [facility] Results Includes: Results discussed during this encounter SARS COVID-19 FLU A & B [facility] Ordered by UZMA SNOWDEN DNP on Collected: Reported: 08/20/2023 COVID POS A (Abnormal) Group A strep [facility] Ordered by UZMA SNOWDEN DNP on Collected: Reported: 08/20/2023 Rapid Strep POS A (Abnormal) History of Present Illness Includes: History of Present Illness from this encounter HPI ANITA SNYDER is a 28 year old female. - Allergy list reviewed - Medication list reviewed - Not feeling fine - Feeling tired - Fever - Chills - No sinus pain - No neck pain - No neck stiffness - No swollen glands in the neck - No eye symptoms - Nasal discharge - Nasal passage blockage (stuffiness) - Sore throat constantly - Triggered by swallowing - No ear symptoms - No hoarseness - No excessive drooling - No chest pain or discomfort - No dyspnea - No cough - Decreased appetite - No heartburn - No nausea - No abdominal pain Anita presents to the clinic accompanied by with the above reported symptoms since yesterday. She reports that she has been running low grade fevers off and on. Patient reports that she has been exposed to COVID recently. Patient is 18 weeks . She reports that she has had some lower back ache and intermittent cramping, denies any vaginal bleeding or discharge. Social History Description Last Updated Current smoker 08/20/2023 Procedures and Surgical History Includes: Procedures from this encounter Procedures Code Diagnosis Performing Provider Service Location Service Date CLINIC VISIT [id number] Streptococcal pharyngitis UZMA SNOWDEN DNP [facility] 08/20/2023 Medical History Includes: Medical History addressed during this encounter Description Last Updated Contact with and (Suspected) exposure to COVID-19 08/20/2023 Family History Includes: Family History addressed during this encounter No Family History Recorded Review of Systems Includes: Review of Systems from this encounter Systemic: Feeling poorly (malaise), fatigue, fever, and chills. Head: Headache. No sinus pain. Neck: No neck pain, no neck stiffness, and no lump or swelling in the neck. Eyes: No itching of the eyes and no eye pain. Otolaryngeal: No earache. Nasal discharge. No hoarseness. Sore throat. Cardiovascular: No chest pain or discomfort. Pulmonary: No dyspnea and no cough. Gastrointestinal: No dysphagia, no nausea, no vomiting, no abdominal pain, and no diarrhea. Musculoskeletal: Muscle aches. Skin: No rash. Mental Status Includes: Mental Status from this encounter No Mental Status Recorded Functional Status Includes: Functional Status from this encounter No Functional Status Recorded Physical Exam Includes: Physical Exam from this encounter Allergies Includes: Active Allergies Substance Type Reaction Onset Date Resolved Date Statu s oxyCODONE HCl Allergy 08/20/2023 Activ e Encounters Encounter Provider Location Date Check-In Time Check-Out Time Diagnosis COVID SICK VISIT- ESTABLISHED PATIENT UZMA SNOWDEN DNP [facility] 08/20/19 24 3:12PM 3:55PM Pharyngitis Streptococcus, Group A: Beta Hemolytic,Valdemar navirus Covid-19 Infection Acute Insurance Includes: Active Insurance Policies Plan Name Member ID Group # Subscriber Relationship Effect breonna Dates 1 - [facility] [id number] ANITA SNYDER Self Clinical Notes Includes: Clinical Notes from this encounter * Progress note Date Encounter Last Documented by 08/20/2023 COVID SICK VISIT- ESTABLISHED PA ALONZO Last documented on 08/20/2023; 4:02 PM, UZMA SNOWDEN DNP; [facility] Active Problems & Conditions - No Active Problems - Z33.1 - Chief Complaint The Chief Complaint is: PT IS HERE DUE TO BEING EXPOSED TO COVID FRIDAY HER SON TESTED POS FOR COVID YESTERDAY SHE HAS CONGESTION, RUNNY NOSE, FEVERISH, BODY ACHES, HEADACHE DID COVID FLU STREP PT IS 18 WKS PREGANT. History of Present Illness ANITA SNYDER is a 28 year old female. - Allergy list reviewed - Medication list reviewed - Not feeling fine - Feeling tired - Fever - Chills - No sinus pain - No neck pain - No neck stiffness - No swollen glands in the neck - No eye symptoms - Nasal discharge - Nasal passage blockage (stuffiness) - Sore throat constantly - Triggered by swallowing - No ear symptoms - No hoarseness - No excessive drooling - No chest pain or discomfort - No dyspnea - No cough - Decreased appetite - No heartburn - No nausea - No abdominal pain Anita presents to the clinic accompanied by with the above reported symptoms since yesterday. She reports that she has been running low grade fevers off and on. Patient reports that she has been exposed to COVID recently. Patient is 18 weeks . She reports that she has had some lower back ache and intermittent cramping, denies any vaginal bleeding or discharge. Past Medical/Surgical History Reported: Exposure: Contact with and (Suspected) exposure to COVID-19. Physical Trauma: No fall. Social History Tobacco use: Current smoker. Review Of Systems Systemic: Feeling poorly (malaise), fatigue, fever, and chills. Head: Headache. No sinus pain. Neck: No neck pain, no neck stiffness, and no lump or swelling in the neck. Eyes: No itching of the eyes and no eye pain. Otolaryngeal: No earache. Nasal discharge. No hoarseness. Sore throat. Cardiovascular: No chest pain or discomfort. Pulmonary: No dyspnea and no cough. Gastrointestinal: No dysphagia, no nausea, no vomiting, no abdominal pain, and no diarrhea. Musculoskeletal: Muscle aches. Skin: No rash. Physical Findings - Vitals taken 08/20/2023 03:30 pm BP-Sitting L 112/68 mmHg BP Cuff Size Regular Pulse Rate-Sitting 100 bpm Pulse Rhythm Regular Respiration Rate 21 per min Temp-Oral 98.4 F Height 63 in Weight 123 lbs Body Mass Index 21.8 kg/m2 Body Surface Area 1.6 m2 Oxygen Saturation 100 % General Appearance: - Awake. - Alert. - Well nourished. Eyes: General/bilateral: Pupils: - PERRLA. Ears: Right Ear: Tympanic Membrane: - Normal. - Not erythematous. Left Ear: Tympanic Membrane: - Normal. - Not erythematous. Nose: General/bilateral: Discharge: - Nasal discharge. Sinus Tenderness: - No sinus tenderness. Pharynx: Oropharynx: - Tonsils showed abnormalities. - Tonsils were enlarged. - Inflamed. - Tonsils showed no exudate. Lymph Nodes: - No adenopathy. - No tender lymph nodes. Lungs: - Clear to auscultation. Cardiovascular: Heart Rate And Rhythm: - Normal. Abdomen: Auscultation: - Bowel sounds were normal. Skin: - Normal. - Texture was normal. - Color and pigmentation were normal. - Mucous membranes were not dry. Tests - Test: SARS COVID-19 FLU A & B Report Date: 08/20/2023 COVID POS Abnormal INFLUENZA A NEG Normal INFLUENZA B NEG Normal INT. QC ACCEPTABLE? YES Normal LOT # & EXP. DATE [id number] 03-25-24 Normal - Test: Group A strep Report Date: 08/20/2023 Rapid Strep POS Abnormal LOT # AND EXP. DATE [id number] 02-05-26 Normal INT. QC ACCEPTABLE? YES Normal Assessment - [J02.0 - Streptococcal pharyngitis] Group A streptococcus: B hemolytic pharyngitis - [U07.1 - COVID-19] Acute COVID-19 infection Therapy - Clinical summary provided to patient. Pt to use prescription as ordered. Purpose of and use of medication discussed. . Pt to use OTC fever/pain product as needed per product instruction. . Plan StartCited - CONTACT WITH AND (SUSPECTED) EXPOSURE TO COVID-19 In office procedures/*[facility]: SARS COVID-19 + flu A & B test EndCited StartCited - Streptococcal pharyngitis In office procedures/*[facility]: Rapid Strep Test Amoxicillin 875 MG tablet 1 CAPSULE TWO TIMES A DAY, 10 days, 0 refills EndCited - Return to the clinic if condition worsens or new symptoms arise Strep and COVID tests were both negative at today's visit. Recommend that the patient follows up with OB provider. Seek ER attention if cramping gets worse or any vaginal bleeding or discharge is noted. 1. Increase water intake. 2. Get plenty of rest. 3. Take antibiotic as directed, even if/when you start to feel better. 4. May use salt water gargles, OTC Chloraseptic spray, or throat lozenges to help with symptoms. 5. Change mouth care products, such as your tooth brush, 24-48 hours after starting antibiotic to help prevent re-infection. 6. Illness is spread via droplet contact. It is important to avoid sharing eating utensils and drinking cups to prevent the spread of infection. 7. Patient may return to school/work after being on antibiotic therapy for 24 hours. 8. Patient voiced understanding to the teaching. Practice Management Use of tobacco assessment performed Review of medications documented. Health Reminders - Assess BMI satisfied 08/20/2023. - Assess Tobacco Use satisfied 08/20/2023.
--- OUTSIDE RECORDS SUMMARY | 2024-01-16 00:23 | XMS_ITS | Clinical Summary ---
Author Name Unknown Address [address] [place] [address] Phone Organization [facility] Address [address] [place] [address] Phone Care Team Providers Care Pediatric Dentist Name Role Phone BRENTON OTERO MD Primary Care Provider [phone] Reason for Visit and Chief Complaint The Chief Complaint is: pt is in clinic for ingrown toenail repair on right foot both sides Problems Includes: Problems addressed during this encounter and other active Problems All Visits Onset Date Resolved Date Provider Condition S tatus 06/15/2022 CORBY GUTHRIE SCARF AND ANNEAL OPERATOR-BC A ctive Plan of Treatment Instructions to patient Intervention and counseling on cessation of tobacco use Last Documented On 3 10:43AM ; [facility] Assessments Includes: Assessments from this encounter Findings - Ingrowing toenail of right foot [L60.0 - Ingrowing nail] - Last Documented On 02/07/2023 10:50AM ; [facility] Instructions Includes: Instructions from this encounter Instructions to patient Intervention and counseling on cessation of tobacco use Last Documented On 3 10:43AM ; [facility] Medical Equipment - Implanted Devices Includes: Current Devices No Medical Equipment Recorded Medications Includes: Medications discussed during this encounter and other current Medications Current Medications (continue as prescribed) Sertraline HCl 100 MG Oral Tablet 12/05/2022 Provide r: Diagnosis: ordered by ob-insurance associate Past Medications on file Amoxicillin 875 MG [...] Vital Signs from this encounter Vital Name 02/07/2023 09:56A Blood Pressure Sitting L 122/60 BP Cuff Size Regular Pulse Rate-Sitting (bpm) 86 Respiration Rate (breaths/min) 20 Temp-Oral (F) 978 Height (in) 63 Weight (lb) 125 Body Mass Index 22.1 Body Surface Area 1.6 Oxygen Saturation (%) 98 Last Documented: On 02/07/2023 9:59AM ; [facility] Results Includes: Results discussed during this encounter No Results Recorded For Specified Dates History of Present Illness Includes: History of Present Illness from this encounter JENNIFER SNYDER is a 27 year old female. Source of patient information was patient ? Allergy list reviewed ? Problem list reviewed ? Medication list reviewed - The right toenails are abnormal,ingrown for years, pain off and on. No issues currently. Finished antibiotics - Showed deformity causing pain, right - No rapidly growing toenails - Showed no thickening - Showed no deformity - Showed no swelling of the nailfold - No yellowish discoloration of the right great toenail - Not of the left great toenail Social History Description Last Updated Current smoker 08/20/2023 Procedures and Surgical History Includes: Procedures from this encounter Procedures Code Diagnosis Performing Provider Service L ocation Service Date CLINIC VISIT T1015 Ingrowing nail JALYN LUNDBERG PA-C [facility] 02/07/2023 Medical History Includes: Medical History addressed during this encounter Description Last Updated No fall 08/20/2023 Family History Includes: Family History addressed during this encounter Description Last Updated Family history of malignant female breas t neoplasm MGM--early 30s 07/25/2016 Review of Systems Includes: Review of Systems from this encounter Systemic: No edema. Head: No headache. Eyes: No vision problems. Cardiovascular: No chest pain or discomfort. Pulmonary: No shortness of breath. Neurological: No dizziness. Mental Status Includes: Mental Status from this encounter No Mental Status Recorded Functional Status Includes: Functional Status from this encounter No Functional Status Recorded Physical Exam Includes: Physical Exam from this encounter Allergies Includes: Active Allergies Substance Type Reaction Onset Date Resolved Date Statu s oxyCODONE HCl Allergy 08/20/2023 Activ e Encounters Encounter Provider Location Date Check-In Time Check-Out Time Diagnosis PROBLEM VISIT JALYNCHARITY CARRANZA PA-C [facility] 02/08/20 23 9:54AM 10:25AM Ingrowing Toenail Right Foot Insurance Includes: Active Insurance Policies Plan Name Member ID Group # Subscriber Relationship Effect breonna Dates 1 - [facility] [id number] GRACIELA SNYDER Self Clinical Notes Includes: Clinical Notes from this encounter * Progress note Date Encounter Last Documented by 02/07/2023 PROBLEM VISIT Last documented on 02/07/2023; 10:50 AM, JALYN CARRANZA PA-C; [facility] Active Problems & Conditions - No Active Problems - Z33.1 - Chief Complaint The Chief Complaint is: Pt is in clinic for ingrown toenail repair on right foot both sides. History of Present Illness GRACIELA SNYDER is a 27 year old female. Source of patient information was patient - Allergy list reviewed - Problem list reviewed - Medication list reviewed - The right toenails are abnormal,ingrown for years, pain off and on. No issues currently. Finished antibiotics - Showed deformity causing pain, right - No rapidly growing toenails - Showed no thickening - Showed no deformity - Showed no swelling of the nailfold - No yellowish discoloration of the right great toenail - Not of the left great toenail Current Medication - Sertraline HCl 100 MG Oral Tablet One tablet daily ordered by ob-insurance associate, 0 days, 0 refills Past Medical/Surgical History [...] Tests: Blood pressure was not high. Exposure: No exposure to tuberculosis. Environmental Exposure: Smoke exposure. Physical Trauma: No fall. No trauma to the head and no trauma to the toenails. : Vaginal delivery and 0. Pediatric: Not [...] use - All day everyday. Tobacco use: Smoking electronic cigarettes and former smoker VAPES. Smoking status: Former smoker. Alcohol: Not using alcohol. Drug Use: Not using drugs. Housing And Economic Circumstances: Lives with unmarried mother. Education: Currently in school. Sexual: Sexually active; current partner x 1mo . Has had 10 lifetime partners. control method not specified. Travel: No travel. 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 Allergies - HYDROcodone-Acetaminophen Family History Cancer No family history of sudden early deaths No family history of bleeding problems Family history unchanged No convulsions Blood pressure was not high No family history of defects No diagnosis of diabetes mellitus No diagnosis of arthritis No diagnosis of stroke syndrome No diagnosis of malignant neoplasm of large intestine Malignant female breast neoplasm MGM--early 30s Review Of Systems Systemic: No edema. Head: No headache. Eyes: No vision problems. Cardiovascular: No chest pain or discomfort. Pulmonary: No shortness of breath. Neurological: No dizziness. 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 - SALES CENTER MANAGER of left first toe normal. Musculoskeletal System: Toes: General/bilateral: - No paronychia of the toenails. - No onychia of the toenails. - No onycholysis of the toenails. - No onycholysis of the left first toe. - No onychogryphosis of the left first toe. - No toenail discoloration. - No discoloration of the right first toenail. - No discoloration of the left first toenail. - No swelling, erythema, and warmth of the toenail border. - No drainage from a toenail fold. Toes Of The Right Foot: - Tenderness on palpation of the first toe nail bed. - No paronychia of the first toe. - No onychia of the first toe. - No swelling, erythema, and warmth of the lateral aspect of the great toenail border. Psychiatric: Psychiatric: Value PHQ9 score: 0 Skin: - No lesions on the right first toe nail fold. Injury / Incision Site: - No laceration on the toenail bed. Nails: - Ingrown nails were noted on the medial border of the right first toe. - Ingrown nails were noted on the lateral border of the right first toe. Assessment - Ingrowing toenail of right foot [L60.0 - Ingrowing nail] Therapy - Wound/incision cleaning, cleansers, evaluation, leave open to air, and dressing application. - Intervention and counseling on cessation of tobacco use. - Partial permanent excision of medial border of right great toenail and matrix medial and lateral borders- after explaining procedure and risk, written and verbal consetn obtained. Toe was cleaned with betadine. 0.5cc of 2% lidocain injected locally to each side . 4mm of medial and lateral nail removed. Nail bases was treated with phenol and alcohol to prevent nail growth. Patient tolerated procedure well with no complaintss. Minimal blood loss controlled with pressure. Toe was banaged and post op procedure given including observation, keeping toe clean and appying triple antibiotic BID x 7 days and lateral border. Practice Management Use of tobacco assessment performed Review of medications documented; Standardized depression screening: negative for symptoms and for adult impression and score 0. Health Reminders - Assess BMI satisfied 02/07/2023. - Assess Tobacco Use satisfied 02/07/2023. - Depression Screening satisfied 02/07/2023. - Follow up plan for Depression Screening satisfied 02/07/2023. - Smoking & Tobacco Cessation Intervention and Counseling satisfied 02/07/2023.
--- OUTSIDE RECORDS SUMMARY | 2024-01-16 00:23 | XMS_ITS ---
Care Plan - [facility] Created on: January 16, 2024 GRACIELA SNYDER : 1995 Sex: Female Author Name Unknown Address [address] [place] [address] Phone Organization [facility] Address [address] [place] [address] Phone Care Team Providers Care Line Locator Name Role Phone BRANDEN DONG, BRENTON Hendricks Primary Care Provider [phone]
--- OUTSIDE RECORDS SUMMARY | 2024-01-16 00:23 | XMS_ITS | Clinical Summary ---
Author Name Unknown Address [address] [place] [address] Phone Organization [facility] Address [address] [place] [address] Phone Care Team Providers Care Radiology Specialist Name Role Phone BRANDEN DONG, BRENTON Hendricks Primary Care Provider [phone] Reason for Visit and Chief Complaint The Chief Complaint is: pt would like to discuss an ingrown toe nail on her right big toe. ~ ~Has had chronic issues with ingrown nail. Lateral aspect has been tender for past 2 weeks Problems Includes: Problems addressed during this encounter and other active Problems All Visits Onset Date Resolved Date Provider Condition S tatus 06/15/2022 CORBY GUTHRIE FLATWORK CATCHER-BC A ctive Plan of Treatment Make apt 1 week for nail removal - Last Documented On 01/28/2023 11:16AM ; [facility] Instructions to patient Intervention and counseling on cessation of tobacco use Last Documented On 3 9:00AM ; [facility] Assessments Includes: Assessments from this encounter Findings - Ingrowing toenail of right foot [L60.0 - Ingrowing nail] - Last Documented On 01/28/2023 11:16AM ; [facility] Instructions Includes: Instructions from this encounter Instructions to patient Intervention and counseling on cessation of tobacco use Last Documented On 3 9:00AM ; [facility] Medical Equipment - Implanted Devices Includes: Current Devices No Medical Equipment Recorded Medications Includes: Medications discussed during this encounter and other current Medications New / Renewed during this visit JALYN CARRANZA PA-C on 01/28/2023 Cephalexin 500 MG Oral Capsule Provider: JALYN Ferguson 7 day supply: 21 capsule, 0 refills Diagnosis: Ingrowing nail One tablet three times a day Pharmacy: [address], [phone] - Current Medications (continue as prescribed) Sertraline HCl 100 MG Oral Tablet 12/05/2022 Provide r: Diagnosis: ordered by ob-airline radio operator Past Medications on file Amoxicillin 875 MG Oral Tablet 08/20/2023 - 08/30/2023 Provider: UZMA SNOWDEN DNP Diagnosis: Streptococcal pharyngitis 1 CAPSULE TWO TIMES A DAY Medications Administered Includes: Administered Medications from this encounter No Administered Medications Recorded Vital Signs Includes: Vital Signs from this encounter Vital Name 01/28/2023 08:57A Blood Pressure Sitting L 118/66 BP Cuff Size Regular Pulse Rate-Sitting (bpm) 85 Height (in) 63 Weight (lb) 128 Body Mass Index 22.7 Body Surface Area 1.6 Oxygen Saturation (%) 94 Last Documented: On 01/28/2023 9:00AM ; [facility] Results Includes: Results discussed during this encounter No Results Recorded For Specified Dates History of Present Illness Includes: History of Present Illness from this encounter JENNIFER SNYDER is a 27 year old female. Source of patient information was patient ? Allergy list reviewed ? Problem list reviewed ? Medication list reviewed - No yellowish discoloration of the right great toenail Social History Description Last Updated Smoking electronic cigarettes 01/17/2023 Procedures and Surgical History Includes: Procedures from this encounter Procedures Code Diagnosis Performing Provider Service L ocation Service Date CLINIC VISIT T1015 Ingrowing nail JALYN LUNDBERG PA-C [facility] 01/28/2023 Medical History Includes: Medical History addressed during [...] Time Diagnosis PROBLEM VISIT JALYN CARRANZA PA-C [facility] 01/29/20 23 8:53AM 9:08AM Ingrowing Toenail Right Foot Insurance Includes: Active Insurance Policies Plan Name Member ID Group # Subscriber Relationship Effect breonna Dates 1 - [facility] [id number] GRACIELA SNYDER Self Clinical Notes Includes: Clinical Notes from this encounter * Progress note Date Encounter Last Documented by 01/28/2023 PROBLEM VISIT Last documented on 01/28/2023; 11:16 AM, JALYN CARRANZA PA-C; [facility] Active Problems & Conditions - No Active Problems - Z33.1 - Chief Complaint The Chief Complaint is: Pt would like to discuss an ingrown toe nail on her right big toe. Has had chronic issues with ingrown nail. Lateral aspect has been tender for past 2 weeks. History of Present Illness GRACIELA SNYDER is a 27 year old female. Source of patient information was patient - Allergy list reviewed - Problem list reviewed - Medication list reviewed - No yellowish discoloration of the right great toenail Current Medication - Sertraline HCl 100 MG Oral Tablet One tablet daily ordered by ob-airline radio operator, 0 days, 0 refills Past Medical/Surgical [...] MGM--early 30s Physical Findings - Vitals taken 01/28/2023 08:57 am BP-Sitting L 118/66 mmHg BP Cuff Size Regular Pulse Rate-Sitting 85 bpm Height 63 in Weight 128 lbs Body Mass Index 22.7 kg/m2 Body Surface Area 1.6 m2 Oxygen Saturation 94 % Cardiovascular: Capillary Refill Test: - PICKER AND PACKER of right toes normal. Musculoskeletal System: Toes: General/bilateral: - No discoloration of the right first toenail. Toes Of The Right Foot: - Swelling, erythema, and warmth of the lateral aspect of the great toenail border mild. - Tenderness on palpation of the first toe nail bed. - No paronychia of the first toe. - No onychia of the first toe. Psychiatric: Psychiatric: Value PHQ9 score: 0 Skin: - No lesions on the right first toe nail fold. Nails: - Ingrown nails were noted on the medial border of the right first toe. - Ingrown nails were noted on the lateral border of the right first toe. Assessment - Ingrowing toenail of right foot [L60.0 - Ingrowing nail] Therapy - Intervention and counseling on cessation of tobacco use. Plan StartCited - Ingrowing nail Cephalexin 500 MG capsule One tablet three times a day, 7 days, 0 refills EndCited Make apt 1 week for nail removal Practice Management Use of tobacco assessment performed Review of medications documented; Standardized depression screening: negative for symptoms and for adult impression and score 0. Health Reminders - Assess BMI satisfied 01/28/2023. - Assess Tobacco Use satisfied 01/28/2023. - Depression Screening satisfied 01/28/2023. - Follow up plan for Depression Screening satisfied 01/28/2023.
--- OUTSIDE RECORDS SUMMARY | 2024-01-16 00:23 | XMS_ITS | Clinical Summary ---
Author Name Unknown Address [address] [place] [address] Phone Organization [facility] Address [address] [place] [address] Phone Care Team Providers Care Admitting Representative Name Role Phone BRANDEN DONG, BRENTON Hendricks Primary Care Provider [phone] Reason for Visit and Chief Complaint visit for: 27 yo female with PMH of depression presents today for annual check up. Overall she is feeling fine with no complaints. Take Sertaline daily for depression which resolves sx. Up to date with pap through [facility] - The Chief Complaint is: Annual physical exam Problems Includes: Problems addressed during this encounter and other active Problems All Visits Onset Date Resolved Date Provider Condition S tatus 06/15/[address] [facility]- A ctive Plan of Treatment - Return to the clinic if condition worsens or new symptoms arise - Last Documented On 01/17/2023 9:03AM ; [facility] Instructions to patient Intervention and counseling on cessation of tobacco use Last Documented On 8:50AM ; [facility] Assessments Includes: Assessments from this encounter Findings - Routine adult history and physical (18-64 yrs) without abnormal findings [Z00.00 - Encounter for general adult medical examination without abnormal findings] - Last Documented On 01/17/2023 9:03AM ; [facility] - Minimal depression [F32.0 - Major depressive disorder, single episode, mild] - Last Documented On 01/17/2023 9:03AM ; [facility] Instructions Includes: Instructions from this encounter Instructions to patient Intervention and counseling on cessation of tobacco use Last Documented On 8:50AM ; [facility] Medical Equipment - Implanted Devices Includes: Current Devices No Medical Equipment Recorded Medications Includes: Medications discussed during this encounter and other current Medications Current Medications (continue as prescribed) Sertraline HCl 100 MG Oral Tablet 12/05/2022 Provide r: Diagnosis: ordered by ob-box order person Past Medications on file Amoxicillin 875 MG Oral Tablet 08/20/2023 - 08/30/2023 Provider: UZMA SNOWDEN DNP Diagnosis: Streptococcal pharyngitis 1 CAPSULE TWO TIMES A DAY Cephalexin 500 MG Oral Capsule 01/28/2023 - 02/04/2023 Provider: JALYN ALCALA CH PA-C Diagnosis: Ingrowing nail One tablet three times a day Medications Administered Includes: Administered Medications from this encounter No Administered Medications Recorded Vital Signs Includes: Vital Signs from this encounter Vital Name 01/17/2023 08:46A Blood Pressure Sitting R 120/68 BP Cuff Size Regular Pulse Rate-Sitting (bpm) 84 Respiration Rate (breaths/min) 18 Temp-Oral (F) 97.8 Height (in) 63 Weight (lb) 129 Body Mass Index 22.9 Body Surface Area 1.6 Oxygen Saturation (%) 98 Last Documented: On 01/17/2023 8:50AM ; [facility] Results Includes: Results discussed during this encounter No Results Recorded For Specified Dates History of Present Illness Includes: History of Present Illness from this encounter JENNIFER SNYDER is a 27 year old female. Source of patient information was patient ? Allergy list reviewed ? Medication list reviewed - No systemic symptoms - Not feeling tired or poorly - No cardiovascular symptoms - No pulmonary symptoms - No gastrointestinal symptoms - Normal appetite - No genitourinary symptoms - No musculoskeletal symptoms - No decrease in concentrating ability - No memory lapses or loss - No high irritability - Not sleeping much more than usual - No daytime somnolence - No initial insomnia - No middle-night awakening - No loss of pleasure from usual activities - A desire to continue living - Not thinking about suicide - No homicidal thoughts - Not feeling guilty - No difficulty getting going in the morning - No lack of balance between leisure activities and work - No skin symptoms Social History Description Last Updated Current smoker 01/17/2023 Procedures and Surgical History Includes: Procedures from this encounter Procedures Code Diagnosis Performing Provider Service L ocation Service Date CLINIC VISIT T1015 Encntr for gener al adult medical exam w/o abnormal findings JALYN CARRANZA PA-C [facility] 01/17/2023 Medical History Includes: Medical History addressed during this encounter Description Last Updated No fall 08/20/2023 Family History Includes: Family History addressed during this encounter Description Last Updated Family history of malignant female breas t neoplasm MGM--early 30s 07/25/2016 Review of Systems Includes: Review of Systems from this encounter Systemic: Not feeling poorly (malaise). No fever, no chills, and no recent weight change. Head: No headache. Neck: No lump or swelling in the neck. Cardiovascular: No chest pain or discomfort. Pulmonary: No dyspnea. Gastrointestinal: No nausea, no vomiting, no abdominal pain, and no melena. No diarrhea. Neurological: No dizziness, no motor disturbances, and no sensory disturbances. Psychological: No anxiety. Depression, controlled. Not pessimistic about the future, or brooding about the past, with no feelings of hopelessness, and not feeling that life is empty. No sleep disturbances. Mental Status Includes: Mental Status from this encounter Description Cognitive functioning was no rmal Oriented to time, place, and person Thought processes were not i mpaired No memory lapses or loss No anxiety No homicidal thoughts A desire to continue living Not thinking about suicide The thought content revealed no impairment Minimal depression Functional Status Includes: Functional Status from this encounter No Functional Status Recorded Physical Exam Includes: Physical Exam from this encounter Allergies Includes: Active Allergies Substance Type Reaction Onset Date Resolved Date Statu s oxyCODONE HCl Allergy 08/20/2023 Activ e Encounters Encounter Provider Location Date Check-In Time Check-Out Time Diagnosis ANNUAL PHYSICAL EXAM JALYN CARRANZA PA-C [facility] 01/18/20 23 8:37AM 8:58AM Routine History & Physical Adult Without Abnormal Findings,Depr ession Minimal Insurance Includes: Active Insurance Policies Plan Name Member ID Group # Subscriber Relationship Effect breonna Dates 1 - [facility] [id number] GRACIELA SNYDER Self Clinical Notes Includes: Clinical Notes from this encounter * Progress note Date Encounter Last Documented by 01/17/2023 ANNUAL PHYSICAL EXAM Last docume nted on 01/17/2023; 9:03 AM, JALYN CARRANZA PA-C; [facility] Active Problems & Conditions - No Active Problems - Z33.1 - Chief Complaint The Chief Complaint is: Annual physical exam. Reason For Visit Visit for: 27 yo female with PMH of depression presents today for annual check up. Overall she is feeling fine with no complaints. Take Sertaline daily for depression which resolves sx. Up to date with pap through [facility]. History of Present Illness GRACIELA SNYDER is a 27 year old female. Source of patient information was patient - Allergy list reviewed - Medication list reviewed - No systemic symptoms - Not feeling tired or poorly - No cardiovascular symptoms - No pulmonary symptoms - No gastrointestinal symptoms - Normal appetite - No genitourinary symptoms - No musculoskeletal symptoms - No decrease in concentrating ability - No memory lapses or loss - No high irritability - Not sleeping much more than usual - No daytime somnolence - No initial insomnia - No middle-night awakening - No loss of pleasure from usual activities - A desire to continue living - Not thinking about suicide - No homicidal thoughts - Not feeling guilty - No difficulty getting going in the morning - No lack of balance between leisure activities and work - No skin symptoms Current Medication - Sertraline HCl 100 MG Oral Tablet One tablet daily ordered by ob-box order person, 0 days, 0 refills Past Medical/Surgical History [...] All day everyday. Tobacco use: Smoking electronic cigarettes. Smoking status: Former smoker. Alcohol: Not using [...] neoplasm MGM--early 30s Review Of Systems Systemic: Not feeling poorly (malaise). No fever, no chills, and no recent weight change. Head: No headache. Neck: No lump or swelling in the neck. Cardiovascular: No chest pain or discomfort. Pulmonary: No dyspnea. Gastrointestinal: No nausea, no vomiting, no abdominal pain, and no melena. No diarrhea. Neurological: No dizziness, no motor disturbances, and no sensory disturbances. Psychological: No anxiety. Depression, controlled. Not pessimistic about the future, or brooding about the past, with no feelings of hopelessness, and not feeling that life is empty. No sleep disturbances. Physical Findings - Vitals taken 01/17/2023 08:46 am BP-Sitting R 120/68 mmHg BP Cuff Size Regular Pulse Rate-Sitting 84 bpm Respiration Rate 18 per min Temp-Oral 97.8 F Height 63 in Weight 129 lbs Body Mass Index 22.9 kg/m2 Body Surface Area 1.6 m2 Oxygen Saturation 98 % General Appearance: - Well developed. - Well nourished. - In no acute distress. Neck: Suppleness: - Neck demonstrated no decrease in suppleness. Thyroid: - Showed no abnormalities. Cervical Mass: - No cervical mass was seen. Lymph Nodes: - Supraclavicular lymph nodes were not enlarged. Lungs: - Normal. - Normal breath sounds/voice sounds. Cardiovascular: Heart Rate And Rhythm: - Normal. Heart Sounds: - Normal. Murmurs: - No murmurs were heard. Neurological: - Cognitive functioning was normal. - Oriented to time, place, and person. Psychiatric: Psychiatric: Value PHQ9 score: 0 Appearance: - Normal. Demonstrated Behavior: - Behavior demonstrated no abnormalities. Attitude: - Not abnormal. Mood: - Euthymic. Affect: - Normal. Thought Processes: - Not impaired. Thought Content: - Revealed no impairment. Skin: - General appearance was normal. Assessment - Routine adult history and physical (18-64 yrs) without abnormal findings [Z00.00 - Encounter for general adult medical examination without abnormal findings] - Minimal depression [F32.0 - Major depressive disorder, single episode, mild] Therapy - Intervention and counseling on cessation of tobacco use. - Medication instruction. - Clinical summary provided to patient. - Plan of care reviewed and agreed to. Plan - Return to the clinic if condition worsens or new symptoms arise Practice Management Use of tobacco assessment performed; Standardized depression screening: negative for symptoms and for adult impression and score 0. Health Reminders - Assess BMI satisfied 01/17/2023. - Assess Tobacco Use satisfied 01/17/2023. - Depression Screening satisfied 01/17/2023. - Follow up plan for Depression Screening satisfied 01/17/2023. - Smoking & Tobacco Cessation Intervention and Counseling satisfied 01/17/2023. User Defined 29 Has no health concerns today. Has not been to the ER or hospitalized in the last 12 months.
--- OUTSIDE RECORDS SUMMARY | 2024-01-16 00:23 | XMS_ITS ---
Author Name Unknown Address [address] [place] [address] Phone Organization [facility] Address [address] [place] [address] Phone Care Team Providers Care Camp Head Counselor Name Role Phone BRANDEN DONG, BRENTON Hendricks Primary Care Provider [phone] Problems Includes: Active, inactive, and resolved Problems All Visits Onset Date Resolved Date Provider Condition S tatus 06/15/2022 CORBY GUTHRIE [facility]- A ctive Plan of Treatment Findings Encounter Date Ordered return to the clinic if condition worsens or new symptoms arise COVID SICK VISIT- ESTABLISHED PATIENT with UZMA SNOWDEN DNP 08/20/2023 Referrals To Diagnosis General Surgery GILBERT LOVE DO VIRAL WARTS NO S Note: Dr. Awan - appt al ready set up Instructions to patient Intervention and counseling on cessation of tobacco use Last Documented On 3 10:43AM ; [facility] Intervention and counseling on cessation of tobacco use Last Documented On 3 9:00AM ; [facility] Intervention and counseling on cessation of tobacco use Last Documented On 3 8:50AM ; [facility] Go to the emergency room if condition worsens Last Documented On 3 1:51PM ; [facility] Watch for signs/symptoms of infection Last Documented On 3 1:51PM ; [facility] Watch for signs/symptoms of infection, return to the clinic if seen Last Documented On 3 1:51PM ; [facility] Instructions for patient Last Documented On 3 2:11PM ; [facility] Instructions for patient Last Documented On 1 6:06PM ; [facility] Instructions for patient Last Documented On 1 6:12PM ; [facility] Instructions for patient Last Documented On 1 4:14PM ; [facility] Go to the emergency room if condition worsens Last Documented On 1 4:23PM ; [facility] Watch for signs/symptoms of infection Last Documented On 1 4:23PM ; [facility] Watch for signs/symptoms of infection, return to the clinic if seen Last Documented On 1 4:23PM ; [facility] Intervention and counseling on cessation of tobacco use : Patient recieved smoking cessation handout Last Documented On 1 5:40PM ; [facility] Maintain a healthy diet Last Documented On 0 4:41PM ; [facility] No Special Instructions or D evices Last Documented On 0 4:41PM ; [facility] Education and Decision Aids were provided during visit for: Patient education about self -examination of breasts ~Daily calcium (1200mg) and Vit D (800 IU) for osteoporosis prevention Last Documented On 7 9:10AM ; [facility] Discussed concerns about uns afe sexual practices --condom use for STD prevention (if applicable) Last Documented On 7 9:23AM ; [facility] Patient education about anti biotics: need to finish even if feeling better Last Documented On 5 9:52AM ; [facility] Patient education about anti biotics: need to finish even if feeling better Last Documented On 4 9:31AM ; [facility] Discussed safety practices D iscussed Gardasil ~Discussed Meningitis vaccine ~Discussed getting 2nd Varicella Last Documented On 0 4:41PM ; [facility] Assessments Includes: Assessments for all patient encounters Findings Encounter Date Acute COVID-19 infection COVID SICK VISI T- ESTABLISHED PATIENT with UZMA SNOWDEN [facility] 08/20/2023 Instructions Includes: Instructions for all patient encounters Instructions to patient Intervention and counseling on cessation of tobacco use Last Documented On 3 10:43AM ; [facility] Intervention and counseling on cessation of tobacco use Last Documented On 3 9:00AM ; [facility] Intervention and counseling on cessation of tobacco use Last Documented On 3 8:50AM ; [facility] Go to the emergency room if condition worsens Last Documented On 3 1:51PM ; [facility] Watch for signs/symptoms of infection Last Documented On 3 1:51PM ; [facility] Watch for signs/symptoms of infection, return to the clinic if seen Last Documented On 3 1:51PM ; [facility] Instructions for patient Last Documented On 3 2:11PM ; [facility] Instructions for patient Last Documented On 1 6:06PM ; [facility] Instructions for patient Last Documented On 1 6:12PM ; [facility] Instructions for patient Last Documented On 1 4:14PM ; [facility] Go to the emergency room if condition worsens Last Documented On 1 4:23PM ; [facility] Watch for signs/symptoms of infection Last Documented On 1 4:23PM ; [facility] Watch for signs/symptoms of infection, return to the clinic if seen Last Documented On 1 4:23PM ; [facility] Intervention and counseling on cessation of tobacco use : Patient recieved smoking cessation handout Last Documented On 1 5:40PM ; [facility] Maintain a healthy diet Last Documented On 0 4:41PM ; [facility] No Special Instructions or D evices Last Documented On 0 4:41PM ; [facility] Education and Decision Aids were provided during visit for: Patient education about self -examination of breasts ~Daily calcium (1200mg) and Vit D (800 IU) for osteoporosis prevention Last Documented On 7 9:10AM ; [facility] Discussed concerns about uns afe sexual practices --condom use for STD prevention (if applicable) Last Documented On 7 9:23AM ; [facility] Patient education about anti biotics: need to finish even if feeling better Last Documented On 5 9:52AM ; [facility] Patient education about anti biotics: need to finish even if feeling better Last Documented On 4 9:31AM ; [facility] Discussed safety practices D iscussed Gardasil ~Discussed Meningitis vaccine ~Discussed getting 2nd Varicella Last Documented On 0 4:41PM ; [facility] Medical Equipment - Implanted Devices Includes: Current and historical Devices No Medical Equipment Recorded Medications Includes: Current and historical Medications Current Medications (continue as prescribed) Sertraline HCl 100 MG Oral Tablet 12/05/2022 Provide r: Diagnosis: ordered by ob-linotyper Past Medications on file Amoxicillin 875 MG Oral Tablet 08/20/2023 - 08/30/2023 Provider: UZMA SNOWDEN DNP Diagnosis: Streptococcal pharyngitis 1 CAPSULE TWO TIMES A DAY Cephalexin 500 MG Oral Capsule 01/28/2023 - 02/04/2023 Provider: JALYN BOLTONC Diagnosis: Ingrowing nail One tablet three times a day Cephalexin 500 MG Oral Capsule 12/05/2022 - 01/01/2023 Provider: JALYN CARRANZA PA-C Diagnosis: Cellulitis of le ft toe One tablet three times a day Mupirocin 2% External Ointment 12/05/2022 - 01/01/2023 Provider: JALYN BOLTONC Diagnosis: Cellulitis of le ft toe Apply twice a day Amoxicillin 500 MG Oral Capsule 06/17/2022 - 12/05/2022 Provider: CORBY GUTHRIE BURNING SUPERVISOR-BC Diagnosis: Streptococcal pharyngitis 1 CAPSULE TWO TIMES A DAY Sertraline HCl 50 MG Oral Tablet 05/23/2022 - 12/06/19 Provider: Diagnosis: Ondansetron 4 MG Oral Tablet Disintegrating 05/23/2022 - 12/05/2022 Provider: Diagnosis: Lo Loestrin Fe 1 MG-10 MCG /10 MCG Oral Tablet 07/12/2016 - 07/25/2016 Provider: KARLIE COURTNEY PACasimiroC Diagnosis: Encounter for surveillance of contraceptives, unspecified Take one daily at the same t cricket each day. May substitute. Flagyl 500MG Oral Tablet 07/12/2016 - 01/01/2023 Provider: KARLIE COURTNEY PA-C Diagnosis: Acute vaginitis 1 BID; Avoid alcohol. Generic. Effexor XR 37.5 MG Capsule Extended Release 24 Hour 03/27/2016 - 03/27/2016 Provider: KARLIE COURTNEY PA-C Diagnosis: Major depressive disorder, single episode, unspecified One tablet daily Effexor XR 37.5 MG Capsule Extended Release 24 Hour 03/27/2016 - 01/01/2023 Provider: KARLIE COURTNEY PA-C Diagnosis: Major depressive disorder, single episode, unspecified 1 tab PO qd x 6 days then in crease to 2 tabs PO qd. PROzac 20 MG Capsule 12/28/2015 - 01/01/2023 Provider: KARLIE COURTNEY PA-C Diagnosis: Anxiety disorder , unspecified One tablet daily PROzac 10 MG Capsule, conventional 11/29/2015 - 01/01/2023 Provider: KARLIE COURTNEY PA-C Diagnosis: Anxiety disorder , unspecified 1 cap PO qd x6 days then inc rease to 2 caps qd. Generic. Diflucan 150 MG Tablet 11/29/2015 - 01/01/2023 Provider: KARLIE COURTNEY PA-C Diagnosis: Candidiasis of v ulva and vagina Take one tablet PO x 1, Repe at in 4 days if needed. Generic. Cyclobenzaprine HCl 10 MG Tablet 11/04/2014 - 01/01/2023 Provider: ADAN ORDONEZ PA-C Diagnosis: SPASM OF MUSCLE One tablet twice a day as needed Fluconazole 150 MG Tablet 11/01/2014 - 01/01/2023 Provider: ADAN ORDONEZ PA-C Diagnosis: CANDIDAL VULVOVA GINITIS as directed ONE TAB TODAY AN D THE OTHER IN ONE WEEK Hydrocodone-Acetaminophen 5- 325 MG Tablet 08/30/2014 - 01/01/2023 Provider: GILBERT LOVE DO Diagnosis: LUMP OR MASS IN BREAST 1-2 every 4-6 hours as needed Fluconazole 150 MG OR TABS 10/05/2013 - 01/01/2023 Provider: ADAN ORDONEZ PA-C Diagnosis: CANDIDAL VULVOVA GINITIS Take one tablet, one time. Cipro 250 MG OR TABS 07/19/2013 - 01/01/2023 Provider: ADAN CARPIO PA-C Diagnosis: URIN TRACT INFEC TION NOS Bactrim DS 800-160 MG OR TABS 05/07/2011 - 01/01/2023 Provider: CAN Bliss Diagnosis: INGROWING NAIL Bactrim DS 800-160 MG OR TABS 02/20/2011 - 05/07/2011 Provider: CAN Bliss Diagnosis: CELLULITIS OF DI GIT NOS Aldara 5% EX CREA 02/20/2011 - 01/01/2023 Provider: CAN CURRY PA-C Diagnosis: VIRAL WARTS NOS Apply to affected area three nights a week at bedtime and wash off in AM. Max use: 4 months. Naprosyn 500 MG OR TABS 03/14/2010 - 01/01/2023 Provid er: JALYN BOLTONC Diagnosis: BACKACHE NOS Ventolin HFA 108 (90 Base) MCG/ACT IN AERS 10/26/2009 - 01/01/2023 Provider: CAN Ferguson Diagnosis: SHORTNESS OF BRENNAN ATH 2 puffs every 4-6 hours PRN Medications Administered Includes: Administered Medications in patient's chart No Administered Medications Recorded Vital Signs Includes: Vital Signs from 01/15/2023 through 01/16/2024 Vital Name 08/20/2023 03:30P 02/07/2023 09:56A 01/28/2023 08:57A 01/17/2023 08:46A Blood Pressure Sitting L 112/68 122/60 118/66 BP Cuff Size Regular Regular Regular Regular Pulse Rate-Sitting (bpm) 100 86 85 84 Pulse Rhythm Regular Respiration Rate (breaths/min) 21 20 18 Temp-Oral (F) 98.4 978 97.8 Height (in) 63 63 63 63 Weight (lb) 123 125 128 129 Body Mass Index 21.8 22.1 22.7 22.9 Body Surface Area 1.6 1.6 1.6 1.6 Oxygen Saturation (%) 100 98 94 98 Blood Pressure Sitting R 120/68 Last Documented: On 08/20/2023 3:32PM ; [facility] On 02/07/2023 9:59AM ; [facility] On 01/28/2023 9:00AM ; [facility] On 01/17/2023 8:50AM ; [facility] Results Includes: Results from 01/15/2023 through 01/16/2024 SARS COVID-19 FLU A & B [facility] Ordered by UZMA SNOWDEN DNP on Collected: Reported: 08/20/2023 COVID POS A (Abnormal) Group A strep [facility] Ordered by UZMA SNOWDEN DNP on Collected: Reported: 08/20/2023 Rapid Strep POS A (Abnormal) History of Present Illness History of Present Illness not supported for this document type No History of Present Illness Recorded Social History Description Last Updated Current smoker 08/20/2023 Procedures and Surgical History Includes: Procedures from 01/15/2023 through 01/16/2024 Procedures Code Diagnosis Performing Provider Service Location Service Date CLINIC VISIT [id number] Streptococcal pharyngitis UZMA SNOWDEN DNP [facility] 08/20/2023 Medical History Includes: Medical History in patient's chart Description Last Updated Contact with and (Suspected) exposure to COVID-19 08/20/2023 Family History Includes: Family History in patient's chart Description Last Updated Family history of malignant female breas t neoplasm MGM--early 30s 07/25/2016 Review of Systems Review of Systems not supported for this document type No Review of Systems Recorded Mental Status No Mental Status Recorded Functional Status No Functional Status Recorded Physical Exam Physical Exam not supported for this document type No Physical Exam Recorded Immunizations Includes: Immunizations in patient's chart Vaccine Dose # Date Site Reaction(s) Status Source COVID-19 Pfizer 1 08/26/2020 Left Arm Complete (Re ported) Patient Allergies Includes: Active, inactive, and resolved Allergies Substance Type Reaction Onset Date Resolved Date Statu s oxyCODONE HCl Allergy 08/20/2023 Activ e Encounters Includes: Encounters from 01/15/2023 through 01/16/2024 Encounter Provider Location Date Check-In Time Check-Out Time Diagnosis COVID SICK VISIT- ESTABLISHED PATIENT UZMA SNOWDEN DNP [facility] 08/20/19 24 3:12PM 3:55PM Pharyngitis Streptococcus, Group A: Beta Hemolytic,Valdemar navirus Covid-19 Infection Acute PROBLEM VISIT JALYN CARRANZA PA-C [facility] 02/08/20 9:54AM 10:25AM Ingrowing Toenail Right Foot PROBLEM VISIT JALYN De TERE LOPES [facility] 01/29/20 8:53AM 9:08AM Ingrowing Toenail Right Foot ANNUAL PHYSICAL EXAM JALYN De TERE LOPES [facility] 01/18/20 8:37AM 8:58AM Routine History & Physical Adult Without Abnormal Findings,Depre ssion Minimal Insurance Includes: Active Insurance Policies Plan Name Member ID Group # Subscriber Relationship Effect breonna Dates 1 - [facility] [id number] GRACIELA SNYDER Self Clinical Notes Includes: Signed Clinical Notes starting from 04/26/2022 * Progress note Date Encounter Last Documented by 08/20/2023 COVID SICK VISIT- BABATUNDE ROSADO Last documented on 08/20/2023; 4:02 PM, UZMA SNOWDEN DNP; [facility] Active Problems & Conditions - No Active Problems - Z33.1 - Chief Complaint The Chief Complaint is: PT IS HERE DUE TO BEING EXPOSED TO COVID FRIDAY HER SON TESTED POS FOR COVID YESTERDAY SHE HAS CONGESTION, RUNNY NOSE, FEVERISH, BODY ACHES, HEADACHE DID COVID FLU STREP PT IS 18 WKS PREGANT. History of Present Illness GRACIELA SNYDER is a 28 year old female. [...] - No nausea - No abdominal pain Graciela presents to the clinic accompanied by with [...] YES Normal LOT # & EXP. DATE [id number] 03-25-24 Normal - Test: Group A strep Report Date: 08/20/2023 Rapid Strep POS Abnormal LOT # AND EXP. DATE [id number] 02-05-26 Normal INT. QC ACCEPTABLE? YES Normal [...] 08/20/2023. - Assess Tobacco Use satisfied 08/20/2023. * Progress note Date Encounter Last Documented by 02/07/2023 PROBLEM VISIT Last documented on 02/07/2023; 10:50 AM, JALYN CARRANZA PA-C; [facility] Active Problems & [...] Oral Tablet One tablet daily ordered by ob-linotyper, 0 days, 0 refills Past Medical/Surgical History [...] 98 % Cardiovascular: Capillary Refill Test: - DINKEY PRESS OPERATOR of right toes normal. - DINKEY PRESS OPERATOR of left first toe normal. Musculoskeletal System: [...] Tobacco Cessation Intervention and Counseling satisfied 02/07/2023. * Progress note Date Encounter Last Documented by 01/28/2023 PROBLEM VISIT Last documented on 01/28/2023; 11:16 AM, JALYN CARRANZA PA-C; [facility] Active Problems & [...] Oral Tablet One tablet daily ordered by ob-linotyper, 0 days, 0 refills Past Medical/Surgical History [...] 94 % Cardiovascular: Capillary Refill Test: - DINKEY PRESS OPERATOR of right toes normal. Musculoskeletal System: Toes: [...] up plan for Depression Screening satisfied 01/28/2023. * Progress note Date Encounter Last Documented by 01/17/2023 ANNUAL PHYSICAL EXAM Last docume nted on 01/17/2023; 9:03 AM, JALYN CARRANZA PA-C; [facility] Active Problems & [...] sx. Up to date with pap through FNP. History of Present Illness GRACIELA SNYDER is [...] Oral Tablet One tablet daily ordered by ob-linotyper, 0 days, 0 refills Past Medical/Surgical History [...]
[2024-01-16] MEDS: LACTATED RINGERS 1,000 ML 125 ML IV CONT ×2 (00:37→03:38)
--- NOTE | 2024-01-16 00:39 | WPDOBADMIT ---
Obstetrics - Admit Note Admission Note: record reviewed. No pertinent additions to the history and/or any subsequent changes in the physical findings that are not consistent with the expected course of the were found. Additions to the history and/or subsequent changes in the physical findings follow. Admit in labor, anticipate vaginal delivery
[2024-01-16 00:40] LABS: Basophils Absolute Auto 0.1 K/mm3 (0.0-0.1); Basophils Percent Auto 0.4 % (0.2-1.2); Eosinophils Absolute Auto 0.1 K/mm3 (0-0.3); Eosinophils Percent Auto 0.5 % (0-4.4); Hematocrit 35.6 % (37.0-47.0); Hemoglobin 11.9 g/dL (12.0-15.0); Immature Granulocyte Absolute 0.04 K/mm3 (0.00-0.031); Immature Granulocyte Percent A 0.4 % (0-0.5); Lymphocytes Absolute Auto 2.82 K/mm3 (0.9-3.2); Lymphocytes Percent Auto 25.2 % (18.3-44.2); Mean Corpuscular HGB Conc 33.4 g/dl (32-36); Mean Corpuscular Hemoglobin 30.1 pg (26-34); Mean Corpuscular Volume 90.1 fl (80-100); Mean Platelet Volume 11.5 fl (7.4-10.4); Monocytes Absolute Auto 0.7 K/mm3 (0.1-0.6); Monocytes Percent Auto 5.8 % (2.6-8.5); Neutrophils Absolute Auto 7.6 K/mm3 (1.3-6.7); Neutrophils Percent Auto 67.7 % (45.5-73.1); Platelet Count Result 170 k/mm3 (150-375); Red Blood Count 3.95 M/mm3 (4.2-5.4); Red Cell Distribution Width 12.8 % (11.5-14.5); White Blood Count 11.2 K/mm3 (4.5-10.0)
--- NOTE | 2024-01-16 00:44 | LDADM ---
This patient, Anita Schulz, was admitted to Labor/Delivery/Recovery 104 on 01/15/24 at 23:16. Plans for labor, pain management and were discussed with patient. Patient/family oriented to hospital policies and general routines including ID bracelet, bed and alarms, visiting hours, pain management, procedures, bathroom and other care routines, personal items, smoking policy, room service/diet and guest tray routines, security routines, and visiting hours. Patient/Family are encouraged to report perceived risks to care and to ask questions if they do not understand what they are told or what they should do. See OBIX for further documentation.
[2024-01-16 01:03] LABS: Rapid Plasma Reagin Non-Reactive (NonReactive)
--- NOTE | 2024-01-16 01:13 | P.PNAN_ITS ---
Anes - Eval Pre Procedure Procedure: Labor Epidural Date/Time: 01/16/24 01:13 Surgeon: araceli Preop Diagnosis: Labor Pain Pre Op Diagnosis: ctx Patient Data Age: 28 Gender: F Height: 1.6 m Weight: 70.45 kg Last Vital Signs Pulse 78 01/16/24 01:01 BP 131/102 H 01/16/24 01:01 Pulse Ox 99 01/16/24 01:10 O2 Del Method Room Air 01/16/24 00:39 Allergies Allergy/AdvReac Type Severity Reaction Status Date / Time hydrocodone Allergy Nausea and Verified 12/22/23 12:39 Vomiting oxycodone Allergy Nausea and Verified 12/22/23 12:39 Vomiting Home Medications Medication Instructions Recorded Confirmed Type prenat.vits,blanca,sck-vwgl-lyspp 1 tablet PO HS 07/26/22 01/16/24 History aspirin 81 mg tablet 81 mg PO DAILY 12/22/23 01/16/24 History ondansetron HCl 4 mg tablet 4 mg PO Q6H PRN Nausea 12/22/23 01/16/24 History Laboratory Tests 01/16/24 00:32 WBC 11.2 H K/mm3 (4.5-10.0) RBC 3.95 L M/mm3 (4.2-5.4) Hgb 11.9 L g/dL (12.0-15.0) Hct 35.6 L % (37.0-47.0) MCV 90.1 fl (80-100) MCH 30.1 pg (26-34) MCHC 33.4 g/dl (32-36) RDW 12.8 % (11.5-14.5) Plt Count 170 k/mm3 (150-375) MPV 11.5 H fl (7.4-10.4) Immature Gran % (Auto) 0.4 % (0-0.5) Neut % (Auto) 67.7 % (45.5-73.1) Lymph % (Auto) 25.2 % (18.3-44.2) [place] % (Auto) 5.8 % (2.6-8.5) Eos % (Auto) 0.5 % (0-4.4) Baso % (Auto) 0.4 % (0.2-1.2) Lymph # (Auto) 2.82 K/mm3 (0.9-3.2) [place] # (Auto) 0.7 H K/mm3 (0.1-0.6) Eos # (Auto) 0.1 K/mm3 (0-0.3) Baso # (Auto) 0.1 K/mm3 (0.0-0.1) Abs Immat Gran (auto) 0.04 H K/mm3 (0.00-0.031) Absolute Neuts (auto) 7.6 H K/mm3 (1.3-6.7) Absolute Nucleated RBC 0.000 K/mm3 (0.0-0.012) Nucleated RBC % 0.0 % (0.0-0.2) RPR Non-reactive (NonReactive) HIV 1&2 Ab/P24 Ag 4thGn Pending Blood Type O Positive Antibody Screen Pending : gestational age ([place] 01/21/24, ) Patient hx anesthesia problems: none Family hx anesthesia problems: none Results Review: All pre-operative results and documents have been reviewed as part of the pre- operative evaluation. [facility] Family History Family History Other Patient denies significant medical history Social History Social History Smoking status: Never smoker Tobacco type: e-cigarettes/vaping Second hand tobacco smoke exposure: No Alcohol intake: current Substance use: never Do You Feel Safe in your Home?: Yes Lack of Transportation: No Lack of Food: Never True Current Housing: I Have Housing Concerned About Future Housing: No Difficulty Paying Gas/Electric Bills: No Difficulty Paying for Meds: No Currently Unemployed: No Education: High School Diploma/GED Difficulty w/ Childcare or Family Care: No Spiritual care concerns: No Exam Day of Procedure 01/16/24 01:13 Patient weight: normal Heart: regular rate and rhythm Lungs: normal air movement Airway: Mallampati scale class II Neurological: alert and oriented
[2024-01-16 01:27] LABS: HIV 1/2 Ab P24 Ag Result Negative (Negative)
[2024-01-16] MEDS: OXYTOCIN 30 UNITS/NS 500 ML 30 UNITS/500 ML BAG 999 UNITS IV CONT (08:53)
--- NOTE | 2024-01-16 08:58 | PM.OBPRVD ---
OB - Vaginal Delivery Note Procedure Delivery date: 01/16/24 Induction method: None Delivery augmentation: Rupture of Membranes Delivery monitor: External FHT and External Uterine Route of delivery: Episiotomy description: None Laceration Description: None Specimen: No Quantitative Blood Loss (ml): 50 Anesthesia type: Epidural Disposition: Floor Complications: No immediate complications Baby Date of : 01/16/24 Time of : 08:48 Gestational Age by Date: 39 gender: Male presentation: vertex position: Left Occiput Anterior Placenta delivery description: Spontaneous Cord Vessel Description: 3 Vessels and Delayed Cord Clamping score one minute: 8 score five minutes: 9 Narrative: mother and baby skin to skin in stable condition
[2024-01-16] MEDS: IBUPROFEN 600 MG TABLET PO ×2 (09:24→20:06)
[2024-01-16] MEDS: BENZOCAINE 20% AER SPR (*SP) 56 GM CAN 1 SPRAY TOPICAL (09:24)
[2024-01-16] MEDS: OXYTOCIN 30 UNITS/NS 500 ML 30 UNITS/500 ML BAG 125 UNITS IV CONT (09:24)
[2024-01-16] MEDS: WITCH HAZEL 40 PADS 1 PAD TOPICAL (09:24)
[2024-01-16] MEDS: ACETAMINOPHEN 325 MG TABLET 650 MG PO (09:25)
--- NOTE | 2024-01-16 16:20 | OBPPTRN ---
Patient transferred to post room #287 via (lakesha ). Support person present. Oriented to unit, room, information board, rooming in, admission packet and security measures. Patient verbalizes understanding.
--- NOTE | 2024-01-16 16:45 | PC.NURSE ---
Introductions made and discussed with mother her feeding goals and history. She breastfed her first baby for 13 months. Mother verbalizes she is able to independently latch with appropriate positioning and alignment. She denies any nipple discomfort and is responsively . Reviewed that we'd like to see a latch so we can document how baby is doing. Mother declines any additional assistance or education at this time. Mother is encouraged to call for assistance if her doesn?t latch, pain with latching, questions or concerns. Mother voiced understanding of information shared along with the mom/baby guide for an additional resource. Reported to the Primary RN.
[2024-01-17 00:20] VITALS: BP 99/54; PULSE 65; RESP 16; TEMP 36.8; O2SAT 97
[2024-01-17 05:45] LABS: Hematocrit 34.4 % (37.0-47.0); Hemoglobin 11.5 g/dL (12.0-15.0)
--- NOTE | 2024-01-17 06:53 | WPDANLDPN2 ---
Anes-Prog Note L&D Date/Time: 01/17/24 06:53 Comfortable throughout: labor and delivery Neuraxial method: epidural Epidural/Spinal procedure site: clean & non-tender Neuro status: Neuro function grossly intact. Cardiovascular status: normal Respiratory status: normal Airway patency: baseline Mental status: baseline Post-Op hydration status: normal Vital Signs: Last Vital Signs Temp 36.8 C 01/17/24 00:20 Pulse 65 01/17/24 00:20 Resp 16 01/17/24 00:20 BP 99/54 L 01/17/24 00:20 Pulse Ox 97 01/17/24 00:20 O2 Del Method Room Air 01/16/24 20:12 Pain score (VAS): 1 I/O: Intake & Output 01/16/24 01/16/24 01/17/24 15:59 23:59 07:59 Output Total 300 Balance -300 Post-procedural complaints: none Patient feedback: Patient satisfied with anesthetic care.
--- NOTE | 2024-01-17 07:13 | PM.OBPNVD ---
OB - PN: Subj Subjective Date/time seen: 01/17/24 07:13 Interval history: pp day 1 doing well no complaints OB - PN: Obj Data Labs 01/17/24 04:31 Labs: Laboratory Results - last 24 hr 01/17/24 04:31 Hgb 11.5 L Hct 34.4 L OB - PN A/P Plan day: 1 Plan: routine care Time Spent With Patient Time: Total time spent is greater than 50% in coordination of care (as documented) at patient's floor/unit and/or counseling patient: Review of Systems Review of Systems: All systems reviewed & are unremarkable except as noted in HPI and below Exam Const: General: cooperative and healthy appearing Resp: Effort & Inspection: normal respiratory effort Cardio: Rate: regular rate Skin: General skin exam: normal color Extrem: General: normal to inspection
[2024-01-17 08:00] VITALS: BP 117/73; PULSE 82; RESP 16; TEMP 37.4; O2SAT 97
[2024-01-17] MEDS: MULTIVIT/MIN/PREN/FOL AC/IRON TABLET 1 TAB PO (09:14)
[2024-01-17] MEDS: IBUPROFEN 600 MG TABLET PO (18:30)
[2024-01-17 19:46] VITALS: BP 118/75; PULSE 78; RESP 16; TEMP 36.7; O2SAT 97
[2024-01-18 07:47] VITALS: BP 104/62; PULSE 73; RESP 20; TEMP 36.7; O2SAT 99
[2024-01-18 08:00] VITALS: PULSE 73; RESP 20; O2SAT 99
--- NOTE | 2024-01-18 08:56 | P.DS_ITS ---
DS: Admitting Diagnosis Discharge Date January 18, 2024 Admitting Diagnosis term DS: Discharge Diagnosis Discharge Diagnosis (1) Post term , delivered: Code(s): O48.0 - Post-term Status: Acute OB - DS: Summary OB Procedures : None OB Procedures Intrapartum: Spontaneous Vag Delivery OB Procedures: : None Peripartum Data Laceration Description: None Episiotomy description: None Time Spent with Patient Time attestation: Total time spent providing and/or coordinating discharge services: Discharge Plan Discharge Discharging Clinician: Reg Castrejon Patient Disposition: Home, Self-Care Activity: pelvic rest Diet: regular Patient Instructions: Antibiotic Form Stand Alone Forms: General Discharge Information Follow-up/Referrals: Reg Castrejon MD [Physician] - Discharge Medications: No Action prenat.vits,blanca,[id number] Tablet 1 tablet PO HS ondansetron HCl 4 mg Tablet 4 mg PO Q6H PRN (Reason: Nausea) aspirin 81 mg Tablet 81 mg PO DAILY Date of admission: 01/15/24 23:16 Primary Care Provider: PHYSICIAN,DREDGE OPERATOR SUPERVISOR Admitting Provider: Reg Castrejon Attending physician on admission: Baylee Blanca Condition: Stable
[2024-01-18] MEDS: IBUPROFEN 600 MG TABLET PO (10:15)
[2024-01-18] MEDS: MULTIVIT/MIN/PREN/FOL AC/IRON TABLET 1 TAB PO (10:15)
[2024-01-18] MEDS: MEASLES,MUMPS,RUBELLA VACCINE 0.5 ML VIAL SUB-Q (10:47)
--- NOTE | 2024-01-18 13:47 | PC.NURSE ---
Patient was given the opportunity to view the discharge video Mother & Baby Care, The First Two Weeks and to ask questions. Patient declined viewing the video and has been given the mother/baby guide for home reference.
[2024-01-19 13:07] VITALS: BP 119/70; PULSE 79; RESP 18; TEMP 36.8; O2SAT 100
== END 2024-01-18 13:35 | disposition home or self-care (01) | DRG 560 ==
LOC: ANHLDR 01-16 06:15 → ANHOB2 01-18 08:56 → ANHLDR 01-20 07:07 → ANHOB2 01-20 07:07
PROVIDERS: Advanced Practice Midwife; Admitting Provider Obstetrics & Gynecology; Visit Provider Obstetrics & Gynecology
DX: O80 Encounter for full-term uncomplicated delivery (principal); Z37.0 Single live birth; Z3A.39 39 weeks gestation of pregnancy
CPT/HCPCS: 36415; 85014; 85018; 85025; 86592; 86703; 86850; 86900; 86901; 90710; A9270; G0432; J2590; J2795; J7120